=== PATIENT | female | born 1930 | race Caucasian/White ===

== ENCOUNTER 2016-12-10 09:02 | Inpatient (IN) | payer BC, OTHER ==
[2016-12-10] VITALS (7 sets, daily range): BP systolic 130–170; BP diastolic 71–89; PULSE 46–74; TEMP 36.3–36.7; O2SAT 95–99; Ht 165.1 cm; Wt 70.4 kg
[~2016-12-10] VITALS: Ht 165.1 cm; Wt 70.4 kg
[~2016-12-10 09:02] MED LIST: ASPCH81X PO; FERR325T51 PO; PRAV20TA PO
[2016-12-10] MEDS ORDERED: FENTANYL CITRATE INJ 50 MCG/1 ML 2 ML VIAL IV STA ×2 (09:17→10:55)
[2016-12-10] MEDS ORDERED: ONDANSETRON INJ 2 MG/ML 2 ML VIAL IV STA (09:17)
[2016-12-10] MEDS ORDERED: SODIUM CHLORIDE 0.9% 1000ML 1,000 ML IV STA (09:17)
[2016-12-10 09:56] LABS: BASO % 0.6 %; BASO ABS # 0.04 K/uL (0-0.2); COMPLETE YES; EOS % 2.6 %; HEMATOCRIT 41.8 % (37-47); IG% 0.3 %; LYMPH % 19.7 %; LYMPH ABS # 1.41 K/uL (1.2-3.4); MEAN CELL VOLUME 86.7 fL (80-100); MEAN CORPUSCULAR HEMOGLOBIN 29.3 pg (25-34); MEAN CORPUSCULAR HGB CONC 33.7 g/dl (32-36); MEAN PLATELET VOLUME 9.5 fL (7.4-10.4); MONO % 6.8 %; PLATELET COUNT 233 K/uL (130-400); RED BLOOD COUNT 4.82 M/uL (4.2-5.4); WHITE BLOOD COUNT 7.17 K/uL (4.8-10.8)
--- NOTE | 2016-12-10 10:09 | EMERGENCY ROOM VISIT NOTE ---
History Report prepared by Neville: Leslye Lim Under the Supervision of: Dr. Chel Duncan M.D. First contact with patient: 09:10 Chief Complaint: FLANK PAIN Stated Complaint: EXTREME PAIN ON LEFT SIDE POSSIBLY A KIDNEY STONE History of Present Illness The patient is an 86 year old female who presents to the Emergency Room with complaints of persistent left flank pain that started this morning. The patient rates her pain a 7-8/10 in severity. She reports that she has had 13 kidney stones in the past, but states that her last one was five years ago. The patient states that she was woken up from her sleep because of the pain. She notes that she fell backwards onto her cement driveway a week ago while she was gardening. The patient states that she did not lose consciousness and was helped up by her daughter who is a nurse. She notes that she has been having trouble urinating. The patient denies a headache or vomiting. She denies being on any anticoagulants. The patient denies any kidney function issues. Source of History: patient Onset: this morning Position: other (left flank) Symptom Intensity: 7-8/10 Timing: other (persistent) Associated Symptoms: + urinary symptoms (trouble urinating), No LOC, No headache, No vomiting Review of Systems See HPI for pertinent positives & negatives. A total of 10 systems reviewed and were otherwise negative. 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 Social History Smoking Status: Never Smoker Marital Status: Housing Status: lives with family Current/Historical Medications Scheduled Aspirin (Aspirin Chewable), 81 MG PO DAILY Allergies Coded Allergies: Celecoxib (Verified Allergy, Mild, ITCHING, 06/01/15) Physical Exam Vital Signs Date Time Temp Pulse Resp B/P (MAP) Pulse Ox O2 Delivery O2 Flow Rate FiO2 12/10/16 12:00 47 21 99 12/10/16 11:30 46 16 99 12/10/16 11:19 50 16 170/82 100 Room Air 12/10/16 10:40 49 21 168/76 99 Room Air 12/10/16 09:57 55 12/10/16 09:06 36.3 68 20 137/82 99 Room Air Physical Exam Vital signs reviewed. General: Well-appearing female, in no significant distress. HEENT: No scleral icterus, PERRLA, neck supple. Atraumatic. Cardiovascular: Regular rate and rhythm, no extra sounds. Pulmonary: Clear to auscultation bilaterally, normal work of breathing. Abdomen: Soft, mild left CVA tenderness, mild left lower abdomen pain, no rebound or guarding, nondistended, positive bowel sounds. Musculoskeletal: Atraumatic, no peripheral edema. Neurologic: Patient awake alert and oriented x 3 Skin: Warm, dry, no rash Medical Decision & Procedures ER Provider Diagnostic Interpretation: Radiology results as stated below per my review and radiologist interpretation: CT SCAN OF THE ABDOMEN AND PELVIS WITHOUT IV CONTRAST CLINICAL HISTORY: Left lower quadrant abdominal pain. COMPARISON STUDY: Abdominal CT dated 09/12/2013. TECHNIQUE: CT scan of the abdomen and pelvis is performed from the lung bases to the proximal femora. Images are reviewed in the axial, sagittal, and coronal planes. IV contrast was not administered for this examination as per the referring clinician. A dose lowering technique was utilized adhering to the principles of ALARA. CT DOSE: 918.77 mGy.cm FINDINGS: Lung bases: The heart is normal in size and there is trace pericardial fluid. Numerous punctate calcified granulomas are seen in the lung bases. No airspace consolidation or pleural effusion is identified. Liver: The unenhanced liver is normal in size, contour, and attenuation. There is no intrahepatic biliary ductal dilatation. Gallbladder: Unremarkable. Spleen: Normal in size and attenuation. Pancreas: The unenhanced pancreas is atrophic. Scattered parenchymal calcifications are noted. Adrenal glands: Unremarkable. Kidneys: The unenhanced kidneys are atrophic. There is an 11 mm obstructing calculus at the left vesicoureteral junction seen on axial image #349. This causes severe left-sided hydroureteronephrosis. There is associated left-sided perinephric anterior tear stranding as well as perinephric fluid. An additional 14 mm calculus is present in the left renal collecting system. No right renal calculi are identified. There is no right-sided hydronephrosis. There is no evidence of contour deforming renal mass lesion. 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 Abdominal vasculature: The abdominal aorta is normal in course and caliber noting mild atherosclerotic calcification. Stomach and bowel: There is a large hiatal hernia with over half of the stomach located in the thoracic cavity. The duodenum is normal in configuration. No bowel obstruction is seen. There is moderate sigmoid diverticulosis without CT evidence of acute diverticulitis. The appendix is not identified and reported surgically absent Peritoneum: There is no intraperitoneal free air or abdominal ascites. There is a small fat-containing umbilical hernia. Lymphadenopathy: None. Pelvic viscera: Evaluation of the pelvis is significantly degraded by streak artifact from bilateral hip arthroplasties. The bladder is grossly unremarkable but not well visualized due to streak artifact. Small calcified uterine fibroids are suggested. No adnexal lesion is seen. Findings suggest pelvic floor prolapse. Skeletal structures: The skeletal structures are osteopenic. Moderate lumbosacral spondylosis is observed. There are bilateral hip arthroplasties. No lytic or blastic lesions are seen. IMPRESSION: 1. There is an 11 mm obstructing calculus at the left vesicoureteral junction. This causes severe left-sided hydroureteronephrosis. 2. There is an additional 14 mm nonobstructing left renal calculus. No right renal calculi are identified. 3. 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 4. Large hiatal hernia. 5. Moderate sigmoid diverticulosis without CT evidence of acute diverticulitis. 5. Additional findings as above. Electronically signed by: Romeo Gregory M.D. 12/10/2016 10:30 AM Dictated Date/Time: 12/10/2016 10:23 AM Laboratory Results Test 12/10/16 09:40 Immature Granulocyte % (Auto) 0.3 % White Blood Count 7.17 K/uL (4.8-10.8) Red Blood Count 4.82 M/uL (4.2-5.4) Hemoglobin 14.1 g/dL (12.0-16.0) Hematocrit 41.8 % (37-47) Mean Corpuscular Volume 86.7 fL (80-100) Mean Corpuscular Hemoglobin 29.3 pg (25-34) Mean Corpuscular Hemoglobin Concent 33.7 g/dl (32-36) Platelet Count 233 K/uL (130-400) Mean Platelet Volume 9.5 fL (7.4-10.4) Neutrophils (%) (Auto) 70.0 % Lymphocytes (%) (Auto) 19.7 % Monocytes (%) (Auto) 6.8 % Eosinophils (%) (Auto) 2.6 % Basophils (%) (Auto) 0.6 % Neutrophils # (Auto) 5.02 K/uL (1.4-6.5) Lymphocytes # (Auto) 1.41 K/uL (1.2-3.4) Monocytes # (Auto) 0.49 K/uL (0.11-0.59) Eosinophils # (Auto) 0.19 K/uL (0-0.5) Basophils # (Auto) 0.04 K/uL (0-0.2) Immature Granulocyte # (Auto) 0.02 K/uL (0.00-0.02) Total Bilirubin 0.5 mg/dl (0.2-1) Direct Bilirubin 0.1 mg/dl (0-0.2) Aspartate Amino Transf (AST/SGOT) 21 U/L (15-37) Alanine Aminotransferase (ALT/SGPT) 13 U/L (12-78) Alkaline Phosphatase 106 U/L (45-117) Total Protein 6.7 gm/dl (6.4-8.2) Albumin 3.3 gm/dl (3.4-5.0) Laboratory results per my review. Medications Administered Medications (Trade) Dose Ordered Sig/Deepika Route Start Time Stop Time Status Last Admin Dose Admin Sodium Chloride 1,000 ml @ 125 mls/hr Q8H STAT IV 12/10/16 09:17 12/10/16 15:29 DC 12/10/16 09:17 125 MLS/HR Fentanyl Citrate (Fentanyl Inj) 25 mcg NOW STAT IV 12/10/16 09:17 12/10/16 09:20 DC 12/10/16 09:50 25 MCG Ondansetron HCl (Zofran Inj) 4 mg NOW STAT IV 12/10/16 09:17 12/10/16 09:20 DC 12/10/16 09:49 4 MG Fentanyl Citrate (Fentanyl Inj) 50 mcg NOW STAT IV 12/10/16 10:55 12/10/16 10:56 DC 12/10/16 11:05 50 MCG Potassium Chloride/Sodium Chloride 1,000 ml @ 125 mls/hr Q8H IV 12/10/16 12:00 01/09/17 11:59 12/11/16 04:11 125 MLS/HR ED Course 0915: Past medical records reviewed. The patient was evaluated in room B10. A complete history and physical examination was performed. 0917: Zofran Inj 4 mg IV, Fentanyl Citrate 25 mcg IV, Sodium Chloride 1000 ml @ 125 mls/hr IV. 1055: Ordered Fentanyl Inj 50 mcg IV. 1104: I discussed the patient's case with Dr. Mccall, Urology. He states that the patient should be evaluated under a hospitalist and he will consult on the patient. 1115: I discussed the patient's [place] [facility] [place] is going to evaluate the patient for further treatment. 1120: I reevaluated the patient and she is resting comfortably. I discussed the exam findings with her and I discussed the treatment plan. She verbalized complete understanding and agreement. She will be evaluated for further treatment. Medical Decision Differential diagnosis: Etiologies such as renal colic, appendicitis, diverticulitis, mesenteric ischemia, aortic pathology, infections, inflammatory bowel disease, PUD, biliary pathology, UTI, as well as others were entertained. This patient was evaluated and appeared to be in no significant distress. Patient was complaining of a left lower quadrant abdominal discomfort. She does have mild CVA tenderness. CT scan of the abdomen and pelvis was performed and reveals a 1.1 cm stone in the distal left ureter. There is significant left hydronephrosis and a 13 mm stone in the kidney that is nonobstructing. Patient's laboratory work is fairly unrevealing. The patient required additional IV fentanyl for pain management. She did receive IV hydration. At this time she does not appear to be septic however given her advanced elderly age and size of the stone, it is in her best interest to be admitted for further management. The patient's case was discussed with Dr. Rader of the hospitalist service as well as of urology. The patient has been are aware of the plan and agrees. Medication Reconcilliation Current Medication List: was personally reviewed by me Blood Pressure Screening Patient's blood pressure: Elevated blood pressure Blood pressure disposition: Elevated BP felt to be situational, Did not require urgent referral Consults Time Called: 1055 Consulting Physician: Dr. Mccall, Urology Returned Call: [phone] I discussed the patient's case with Dr. Mccall, Urology. He states that the patient should be evaluated under a hospitalist and he will consult on the patient. Additional Consults: Time Called: 1109 Consulted Physician: GEORGE Enriquez Returned Call: [phone] Additional Comments: I discussed the patient's case with GEORGE Enriquez. He is going to evaluate the patient for further treatment. Impression Primary Impression: Urinary tract obstruction by kidney stone Scribe Attestation The scribe's documentation has been prepared under my direction and personally reviewed by me in its entirety. I confirm that the note above accurately reflects all work, treatment, procedures, and medical decision making performed by me. Departure Information Dispostion Being Evaluated By Hospitalist Referrals No Doctor, Assigned (PCP)
[2016-12-10 10:20] LABS: BUN/CREATININE RATIO 17.2 (10-20); CALCIUM 8.9 mg/dl (8.5-10.1); CREATININE 1.1 mg/dl (0.60-1.20); POTASSIUM 3.8 mmol/L (3.5-5.1)
--- NOTE | 2016-12-10 10:32 | DIAGNOSTIC IMAGING REPORT ---
CT SCAN OF THE ABDOMEN AND PELVIS WITHOUT IV CONTRAST CLINICAL HISTORY: Left lower quadrant abdominal pain. COMPARISON STUDY: Abdominal CT dated 09/12/2013. TECHNIQUE: CT scan of the abdomen and pelvis is performed from the lung bases to the proximal femora. Images are reviewed in the axial, sagittal, and coronal planes. IV contrast was not administered for this examination as per the referring clinician. A dose lowering technique was utilized adhering to the principles of ALARA. CT DOSE: 918.77 mGy.cm FINDINGS: Lung bases: The heart is normal in size and there is trace pericardial fluid. Numerous punctate calcified granulomas are seen in the lung bases. No airspace consolidation or pleural effusion is identified. Liver: The unenhanced liver is normal in size, contour, and attenuation. There is no intrahepatic biliary ductal dilatation. Gallbladder: Unremarkable. Spleen: Normal in size and attenuation. Pancreas: The unenhanced pancreas is atrophic. Scattered parenchymal calcifications are noted. Adrenal glands: Unremarkable. Kidneys: The unenhanced kidneys are atrophic. There is an 11 mm obstructing calculus at the left vesicoureteral junction seen on axial image #349. This causes severe left-sided hydroureteronephrosis. There is associated left-sided perinephric anterior tear stranding as well as perinephric fluid. An additional 14 mm calculus is present in the left renal collecting system. No right renal calculi are identified. There is no right-sided hydronephrosis. There is no evidence of contour deforming renal mass lesion. 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 Abdominal vasculature: The abdominal aorta is normal in course and caliber noting mild atherosclerotic calcification. Stomach and bowel: There is a large hiatal hernia with over half of the stomach located in the thoracic cavity. The duodenum is normal in configuration. No bowel obstruction is seen. There is moderate sigmoid diverticulosis without CT evidence of acute diverticulitis. The appendix is not identified and reported surgically absent Peritoneum: There is no intraperitoneal free air or abdominal ascites. There is a small fat-containing umbilical hernia. Lymphadenopathy: None. Pelvic viscera: Evaluation of the pelvis is significantly degraded by streak artifact from bilateral hip arthroplasties. The bladder is grossly unremarkable but not well visualized due to streak artifact. Small calcified uterine fibroids are suggested. No adnexal lesion is seen. Findings suggest pelvic floor prolapse. Skeletal structures: The skeletal structures are osteopenic. Moderate lumbosacral spondylosis is observed. There are bilateral hip arthroplasties. No lytic or blastic lesions are seen. IMPRESSION: 1. There is an 11 mm obstructing calculus at the left vesicoureteral junction. This causes severe left-sided hydroureteronephrosis. 2. There is an additional 14 mm nonobstructing left renal calculus. No right renal calculi are identified. 3. 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 4. Large hiatal hernia. 5. Moderate sigmoid diverticulosis without CT evidence of acute diverticulitis. 5. Additional findings as above. Electronically signed by: Romeo Gregory M.D. 12/10/2016 10:30 AM Dictated Date/Time: 12/10/2016 10:23 AM
[2016-12-10] MEDS ORDERED: ACETAMINOPHEN 325 MG TAB PO PRN (12:00)
[2016-12-10] MEDS ORDERED: MoRPHine SULFATE 4 MG/ML 1 ML CARP\\VIAL IV PRN (12:00)
[2016-12-10] MEDS ORDERED: POLYETHYLENE (MIRALAX) 17 GM PACK PO PRN (12:00)
[2016-12-10] MEDS ORDERED: ALUMINUM/MAGNESIUM/SIMETH (MAALOX MAX) 30 ML UDC PO PRN (12:00)
[2016-12-10] MEDS ORDERED: MAGNESIUM HYDROXIDE SUSP 30 ML UDC PO PRN (12:00)
[2016-12-10] MEDS ORDERED: ONDANSETRON INJ 2 MG/ML 2 ML VIAL IV PRN ×2 (12:00→14:30)
--- NOTE | 2016-12-10 12:25 | History and Physical ---
History & Physical Date & Time of Service: Dec 10, 2016 at 12:06 Chief Complaint: Extreme Pain On Left Side Possibly A Kidney Stone Primary Care Physician: Marlene Velásquez M.D. History of Present Illness Source: patient, spouse, clinic records, hospital records This is an 86 y/o female with a history of 13 previous kidney stones, CAD, and HLD who presented to the ED on 12/10 with left flank pain. The patient woke up this morning with left groin pain that then radiated up to her left flank. She described her initial pain as an aching 8/10 pain. She also had accompanied nausea but denied any vomiting. She also complains of urinary retention and dysuria but denies curtis hematuria. Her pain is now better controlled and she currently rates it a 2/10. Her nausea has resolved. The patient denies fevers , chills, sweats, chest pain, palpitations, claudication, cough, wheezing, shortness of breath, vomiting, hematuria, paralysis, weakness, numbness and tingling. 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 Status: Chronic (2) ESOPHAGEAL REFLUX Status: Chronic (3) HIP JOINT REPLACEMENT STATUS Status: Resolved (4) Hyperlipidemia Status: Chronic (5) Hypertension Status: Chronic (6) Kidney stones Status: Resolved (7) Noncompliance with medications Status: Chronic Family History Kidney stones Social History Smoking Status: Never Smoker Smokeless Tobacco Use: No Alcohol Use: none Drug Use: none Marital Status: Housing status: lives with significant other Occupational Status: retired Immunizations History of Influenza Vaccine: No Influenza Vaccine Date: Mar 17, 2012 History of Tetanus Vaccine?: Unknown History of Pneumococcal: No Pneumococcal Date: Mar 17, 2012 History of Hepatitis B Vaccine: No Multi-Drug Resistant Organisms History of MDRO: No Allergies Coded Allergies: Celecoxib (Verified Allergy, Mild, ITCHING, 06/01/15) Home Medications Scheduled Aspirin (Aspirin Chewable), 81 MG PO DAILY Review of Systems Constitutional: No fever, No chills, No sweats Eyes: No worsening of vision, No eye pain, No diplopia ENT: No hearing loss, No sore throat, No trouble swallowing Respiratory: No cough, No wheezing, No shortness of breath Cardiovascular: No chest pain, No claudication, No palpitations Abdomen: + pain, + nausea, No vomiting Musculoskeletal: No joint pain, No muscle pain, No calf pain Genitourinary - Female: + dysuria, + urinary retention, No hematuria Neurologic: No paralysis, No weakness, No numbness/tingling Integumentary: No rash, No itch, No color change Physical Exam Vital Signs Date Time Temp Pulse Resp B/P (MAP) Pulse Ox O2 Delivery O2 Flow Rate FiO2 12/10/16 11:19 50 16 170/82 100 Room Air 12/10/16 10:40 49 21 168/76 99 Room Air 12/10/16 09:57 55 12/10/16 09:06 36.3 68 20 137/82 99 Room Air General appearance: Well-developed, well-nourished, no apparent distress Head: Normocephalic, atraumatic Eyes: Normal inspection, PERRL, EOMI ENT: Normal ENT inspection, hearing grossly normal, pharynx normal Neck: Supple, no JVD, trachea midline Respiratory/Chest: Lungs clear to auscultation, normal breath sounds, no respiratory distress Cardiovascular: +Bradycardic. Regular rhythm, no gallop, no murmur Abdomen/GI: +Left flank very TTP. Mild suprapubic tenderness. Normal bowel sounds, soft Extremities/Musculoskeletal: Normal inspection, no calf tenderness, no pedal edema Neurological/Psych: Alert, normal mood/affect, oriented x 3 Skin: Normal color, warm/dry, no rash Diagnostics Laboratory Results Results Past 24 Hours Test 12/10/16 09:40 Range/Units White Blood Count 7.17 4.8-10.8 K/uL Red Blood Count 4.82 4.2-5.4 M/uL Hemoglobin 14.1 12.0-16.0 g/dL Hematocrit 41.8 37-47 % Mean Corpuscular Volume 86.7 80-100 fL Mean Corpuscular Hemoglobin 29.3 25-34 pg Mean Corpuscular Hemoglobin Concent 33.7 32-36 g/dl Platelet Count 233 130-400 K/uL Mean Platelet Volume 9.5 7.4-10.4 fL Neutrophils (%) (Auto) 70.0 % Lymphocytes (%) (Auto) 19.7 % Monocytes (%) (Auto) 6.8 % Eosinophils (%) (Auto) 2.6 % Basophils (%) (Auto) 0.6 % Neutrophils # (Auto) 5.02 1.4-6.5 K/uL Lymphocytes # (Auto) 1.41 1.2-3.4 K/uL Monocytes # (Auto) 0.49 0.11-0.59 K/uL Eosinophils # (Auto) 0.19 0-0.5 K/uL Basophils # (Auto) 0.04 0-0.2 K/uL RDW Standard Deviation 40.5 36.4-46.3 fL RDW Coefficient of Variation 12.7 11.5-14.5 % Immature Granulocyte % (Auto) 0.3 % Immature Granulocyte # (Auto) 0.02 0.00-0.02 K/uL Sodium Level 142 136-145 mmol/L Potassium Level 3.8 3.5-5.1 mmol/L Chloride Level 111 98-107 mmol/L Carbon Dioxide Level 26 21-32 mmol/L Anion Gap 5.0 3-11 mmol/L Blood Urea Nitrogen 19 7-18 mg/dl Creatinine 1.10 0.60-1.20 mg/dl Est Creatinine Clear Calc Drug Dose 35.5 ml/min Estimated GFR () 52.3 Estimated GFR (Non- 45.1 BUN/Creatinine Ratio 17.2 10-20 Random Glucose 90 70-99 mg/dl Calcium Level 8.9 8.5-10.1 mg/dl Total Bilirubin 0.5 0.2-1 mg/dl Direct Bilirubin 0.1 0-0.2 mg/dl Aspartate Amino Transf (AST/SGOT) 21 15-37 U/L Alanine Aminotransferase (ALT/SGPT) 13 12-78 U/L Alkaline Phosphatase 106 45-117 U/L Total Protein 6.7 6.4-8.2 gm/dl Albumin 3.3 3.4-5.0 gm/dl Diagnostic Radiology Reviewed the following studies and agree with interpretation as follows: Patient Name: JEANNE MANN Unit Number: [id number] Dictated: 12/10/161022 Transcribed: 12/10/161022 EV Printed Date/Time: [~ rep prt dt]/[~ rep prt tm] [~ rep ct labl] - [~ rep ct ivnm] [facility] [place] [address] Dictated: 10/14/17 1023 Transcribed: 12/10/16 1023 EV Printed Date/Time: [~ rep prt dt]/[~ rep prt tm] [~ rep ct labl] - [~ rep ct ivnm] Patient: JEANNE MANN Address1: [address] [place] [address] Rec: [id number] Address2: Acct ID: [id number] [facility] Zip: [place] [address] Date: 1930 Sex: F Room/Bed: Ref Phy: Marlene Velásquez M.D. SC: AIDNA Att Phy: Report #: [id number] Pastora Phy: Marlene Velásquez M.D. Test: APSTONE Admit Phy: Band Teacher: GERMAN Interpreting Phy: Romeo Gregory M.D. Diagnosis: EXTREME PAIN ON LEFT SIDE POSSIBLY A KIDNEY STONE Ordering Phy: Chel Duncan M.D. Service Date: 12/10/16 Admit Date: 12/10/16 MNE: [id number] CONF: DICTATED BY: Romeo Gregroy M.D.]] CC: Chel Duncan M.D. Hays, Amy L., M.D. Endcc: [~ rep ct add3]] CT SCAN OF THE ABDOMEN AND PELVIS WITHOUT IV CONTRAST CLINICAL HISTORY: Left lower quadrant abdominal pain. COMPARISON STUDY: Abdominal CT dated 09/12/2013. TECHNIQUE: CT scan of the abdomen and pelvis is performed from the lung bases to the proximal femora. Images are reviewed in the axial, sagittal, and coronal planes. IV contrast was not administered for this examination as per the referring clinician. A dose lowering technique was utilized adhering to the principles of ALARA. CT DOSE: 918.77 mGy.cm FINDINGS: Lung bases: The heart is normal in size and there is trace pericardial fluid. Numerous punctate calcified granulomas are seen in the lung bases. No airspace consolidation or pleural effusion is identified. Liver: The unenhanced liver is normal in size, contour, and attenuation. There is no intrahepatic biliary ductal dilatation. Gallbladder: Unremarkable. Spleen: Normal in size and attenuation. Pancreas: The unenhanced pancreas is atrophic. Scattered parenchymal calcifications are noted. Adrenal glands: Unremarkable. Kidneys: The unenhanced kidneys are atrophic. There is an 11 mm obstructing calculus at the left vesicoureteral junction seen on axial image #349. This causes severe left-sided hydroureteronephrosis. There is associated left-sided perinephric anterior tear stranding as well as perinephric fluid. An additional 14 mm calculus is present in the left renal collecting system. No right renal calculi are identified. There is no right-sided hydronephrosis. There is no evidence of contour deforming renal mass lesion. 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 Abdominal vasculature: The abdominal aorta is normal in course and caliber noting mild atherosclerotic calcification. Stomach and bowel: There is a large hiatal hernia with over half of the stomach located in the thoracic cavity. The duodenum is normal in configuration. No bowel obstruction is seen. There is moderate sigmoid diverticulosis without CT evidence of acute diverticulitis. The appendix is not identified and reported surgically absent Peritoneum: There is no intraperitoneal free air or abdominal ascites. There is a small fat-containing umbilical hernia. Lymphadenopathy: None. Pelvic viscera: Evaluation of the pelvis is significantly degraded by streak artifact from bilateral hip arthroplasties. The bladder is grossly unremarkable but not well visualized due to streak artifact. Small calcified uterine fibroids are suggested. No adnexal lesion is seen. Findings suggest pelvic floor prolapse. Skeletal structures: The skeletal structures are osteopenic. Moderate lumbosacral spondylosis is observed. There are bilateral hip arthroplasties. No lytic or blastic lesions are seen. IMPRESSION: 1. There is an 11 mm obstructing calculus at the left vesicoureteral junction. This causes severe left-sided hydroureteronephrosis. 2. There is an additional 14 mm nonobstructing left renal calculus. No right renal calculi are identified. 3. 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 4. Large hiatal hernia. 5. Moderate sigmoid diverticulosis without CT evidence of acute diverticulitis. 5. Additional findings as above. Electronically signed by: Romeo Gregory M.D. 12/10/2016 10:30 AM Dictated Date/Time: 12/10/2016 10:23 AM The status of this report is Signed. Draft = Not yet reviewed or approved by Radiologist. Signed = Reviewed and approved by Radiologist. <AttendingPhy></AttendingPhy> <FamilyPhy>Marlene Velásquez M.D.</FamilyPhy> < PrimaryPhy>Marlene Velásquez M.D.</PrimaryPhy> <UnitNumber>[id number]</UnitNumber> < VisitNumber>[id number]</VisitNumber> <PatientName>JEANNE MANN</ PatientName> <DateOfBirth>1930</DateOfBirth> <Location>[facility]</Location> < ServiceDate>12/10/16</ServiceDate> <MNE>ESINDI</MNE> <OrderingPhy>Chel Duncan M.D.</OrderingPhy> <OrderingPhyMNE>f rep ord dr kirkland</OrderingPhyMNE> < DictatingPhyMNE>f rep dict dr kirkland</DictatingPhyMNE> <CCListMNE>f rep ct saminae</ CCListMNE> <AdmittingPhyMNE>f pt admit dr kirkland</AdmittingPhyMNE> <AttendingPhyMNE >f pt attend dr kirkland</AttendingPhyMNE> <ConsultingPhyMNE>f pt consult dr kirkland</ConsultingPhyMNE> <FamilyPhyMNE>f pt fam dr kirkland</FamilyPhyMNE> <OtherPhyMNE>f pt other dr kirkland</OtherPhyMNE> < PrimaryPhyMNE>f pt prim care dr kirkland</PrimaryPhyMNE> <ReferringPhyMNE>f pt referring dr kirkland</ReferringPhyMNE> Impression Assessment and Plan 86 y/o female with a history of 13 previous kidney stones, CAD, and HLD who presented to the ED on 12/10 with left flank pain. Pt arrived afebrile, VSS. CT abdomen and pelvis shows 11 mm left ureteral stone in UVJ with severe hydronephrosis, as well as a non-obstructing 14 mm stone in left kidney. 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 Labs grossly unremarkable. Left ureteral stone -Admit to med/surg -NSS + 20 mEq KCl at 125 cc/hr -Morphine 4 mg IV q4h prn pain -Zofran 4 mg IV q6h prn nausea -Flomax 0.4 mg PO hs -Consult urology, appreciate recs: spoke to Dr. Mccall who will see patient. Leave NPO for now -NPO for possible stent later today. Pt has not eaten at all today -Strain urine -UA pending CAD s/p stents -Hold ASA for possible procedure HTN--pt typically with controlled BP but elevated in ED -Cover with hydralazine 10 mg IV q6h prn SBP >180 DVT prophylaxis -Hold chemical prophylaxis for possible procedure -WIN cheema and SCDs Code Status -Level I, FULL RESUSCITATION STATUS Attending Addendum: I have physically seen and examined this patient, have directed the physician assistants medical activities, and agree with the H&P as noted above with the following exceptions as noted. The patient is awake, alert and oriented 3, well-developed and well-nourished , normocephalic and atraumatic, lying in bed and in no acute distress. HEENT--PERRL, EOMI, mucous membranes and oropharynx dry. Neck--supple, no JVD or bruits, thyroid normal, trachea midline, no adenopathy. Heart--normal S1 and S2, no extra beats, no murmurs, rubs or gallops. Lungs--clear bilaterally with good air movement, no respiratory distress, no accessory muscle use. Abdomen--normal bowel sounds and soft, nontender and nondistended, no hernias or masses, no organomegaly. Extremities--no cyanosis, clubbing or edema. There are good distal pulses b/l. Dermatologic--normal skin turgor, normal color, warm and dry, no abnormal lymph nodes, no rash. Neurologic--cranial nerves II through XII grossly intact, motor and sensory examination normal. Rheumatologic--normal range of motion, nontender, muscles and joints. Psychiatric--normal affect. Assessment and Plan: Left Vesicoureteral junction stone/left sided severe hydroureteronephrosis-- Admitted to the medical surgical floor. Nothing by mouth except his such medications IV fluids. Follow serial BMP and magnesium levels Morphine 4 mg IV every 4 hours when necessary severe pain Zofran 4 mg IV every 6 hours when necessary Flomax 0.4 mg by mouth at bedtime. Cipro 400 mg IV every 12 hours. Rao urine culture and sensitivity report Consult urology, Dr. Mccall is aware. CAD/hypertension-- Hold aspirin Hydralazine 10 mg IV every 6 hours. Systolic blood pressure is 180. Level of Care Med/Surg Advanced Directives Existing Advance Directive: No Existing Living Will: No Existing Power of Yarn Spooler: No Resuscitation Status FULL RESUSCITATION VTE Prophylaxis VTE Risk Assessment Done? Y/N: Yes Risk Level: Moderate Given or contraindicated: T.E.D. Stockings, SCD's
[2016-12-10] MEDS ORDERED: HydrALAZINE HCL 20 MG/ML VIAL IV. PRN (12:30)
[2016-12-10 13:11] LABS: URINE APPEARANCE CLEAR (CLEAR); URINE BILIRUBIN NEG (NEG); URINE COLOR YELLOW; URINE EPITHELIAL CELL AUTO >30 /lpf (0-5); URINE NITRITE NEG (NEG); URINE SPECIFIC GRAVITY 1.019 (1.000-1.030); UROBILINOGEN NEG (NEG); ZZUR CULT IF INDIC CLEAN CATCH NO
[2016-12-10 13:12] LABS: MANUAL MICROSCOPIC REQUIRED? NO; REVIEW REQ? NO
[2016-12-10] MEDS: NSS + 20MEQ KCL 1000ML 1,000 ML IV SCH ×2 (14:00→20:26)
[2016-12-10] MEDS ORDERED: MEPERIDINE HCL 25 MG/ML CARP IV PRN (14:30)
[2016-12-10] MEDS ORDERED: LABETALOL HCL IV 5 MG/ML 20ML IV PRN (14:30)
[2016-12-10] MEDS ORDERED: FENTANYL CITRATE INJ 50 MCG/1 ML 2 ML VIAL IV PRN (14:30)
[2016-12-10] MEDS ORDERED: ATROPINE SULFATE 0.1 MG/ML 5ML SYR IV PRN (14:30)
[2016-12-10] MEDS ORDERED: EpHEDrine SULFATE INJ 50 MG/ML AMP IV PRN (14:30)
[2016-12-10] MEDS ORDERED: HYDROmorphone INJ 1 MG/ML SYR IV PRN (14:30)
--- NOTE | 2016-12-10 15:24 | Urology Consultation ---
History General Date of Service: Dec 10, 2016. Primary Care Physician: Marlene Velásquez M.D. Pt seen a urologist before?: Yes If yes, why?: Stones History of Present Illness Patient is an 86-year-old white female who awoke this morning with left flank pain. She has a history of nephrolithiasis. Pain became severe so she came to the emergency room. CT scan showed a 13 mm stone in the left kidney and an 11 mm stone at the left ureterovesical junction with hydroureteronephrosis on that side She denies any fevers or chills. She did have some nausea. Currently the pain is controlled with narcotics Laboratory Last 24 Hours Test 12/10/16 09:40 12/10/16 12:50 White Blood Count 7.17 K/uL Red Blood Count 4.82 M/uL Hemoglobin 14.1 g/dL Hematocrit 41.8 % Mean Corpuscular Volume 86.7 fL Mean Corpuscular Hemoglobin 29.3 pg Mean Corpuscular Hemoglobin Concent 33.7 g/dl Platelet Count 233 K/uL Mean Platelet Volume 9.5 fL Neutrophils (%) (Auto) 70.0 % Lymphocytes (%) (Auto) 19.7 % Monocytes (%) (Auto) 6.8 % Eosinophils (%) (Auto) 2.6 % Basophils (%) (Auto) 0.6 % Neutrophils # (Auto) 5.02 K/uL Lymphocytes # (Auto) 1.41 K/uL Monocytes # (Auto) 0.49 K/uL Eosinophils # (Auto) 0.19 K/uL Basophils # (Auto) 0.04 K/uL RDW Standard Deviation 40.5 fL RDW Coefficient of Variation 12.7 % Immature Granulocyte % (Auto) 0.3 % Immature Granulocyte # (Auto) 0.02 K/uL Sodium Level 142 mmol/L Potassium Level 3.8 mmol/L Chloride Level 111 mmol/L Carbon Dioxide Level 26 mmol/L Anion Gap 5.0 mmol/L Blood Urea Nitrogen 19 mg/dl Creatinine 1.10 mg/dl Est Creatinine Clear Calc Drug Dose 35.5 ml/min Estimated GFR () 52.3 Estimated GFR (Non- 45.1 BUN/Creatinine Ratio 17.2 Random Glucose 90 mg/dl Calcium Level 8.9 mg/dl Total Bilirubin 0.5 mg/dl Direct Bilirubin 0.1 mg/dl Aspartate Amino Transf (AST/SGOT) 21 U/L Alanine Aminotransferase (ALT/SGPT) 13 U/L Alkaline Phosphatase 106 U/L Total Protein 6.7 gm/dl Albumin 3.3 gm/dl Urine Color YELLOW Urine Appearance CLEAR Urine pH 7.0 Urine Specific [place] 1.019 Urine Protein 1+ Urine Glucose (UA) NEG Urine Ketones NEG Urine Occult Blood 2+ Urine Nitrite NEG Urine Bilirubin NEG Urine Urobilinogen NEG Urine Leukocyte Esterase MODERATE Urine WBC (Auto) 5-10 /hpf Urine RBC (Auto) 10-30 /hpf Urine Hyaline Casts (Auto) 1-5 /lpf Urine Epithelial Cells (Auto) >30 /lpf Urine Bacteria (Auto) NEG Problem List Medical Problems: (1) Urinary tract obstruction by kidney stone Status: Acute Family History Kidney stones Social History Hx Tobacco Use In Past Year?: No Marital status: Housing status: lives with significant other Occupation status: retired Immunizations History of Influenza Vaccine: No Influenza Vaccine Date: Mar 17, 2012 History of Tetanus Vaccine?: Unknown History of Pneumococcal: No Pneumococcal Date: Mar 17, 2012 History of Hepatitis B Vaccine: No History of MDRO No Allergies Coded Allergies: Celecoxib (Verified Allergy, Mild, ITCHING, 06/01/15) Medications Home Medications: Home Meds and Scripts Medications Dose Route/Sig Max Daily Dose Days Date Category Aspirin Chewable (Aspirin) 81 Mg Chew 81 Mg PO DAILY 05/28/15 Reported Inpatient Medications: Current Inpatient Medications Medications (Trade) Dose Ordered Sig/Deepika Route Start Time Stop Time Status Last Admin Dose Admin Sodium Chloride 1,000 ml @ 125 mls/hr Q8H STAT IV 12/10/16 09:17 12/10/16 17:16 12/10/16 09:17 125 MLS/HR Acetaminophen (Tylenol Tab) 650 mg Q4H PRN PO 12/10/16 12:00 01/09/17 11:59 Al Hydrox/Mg Hydrox/Simethicone (Maalox Max Susp) 15 ml Q4H PRN PO 12/10/16 12:00 01/09/17 11:59 Magnesium Hydroxide (Milk Of Magnesia Susp) 30 ml Q6H PRN PO 12/10/16 12:00 01/09/17 11:59 Polyethylene (Miralax Powder Packet) 17 gm DAILY PRN PO 12/10/16 12:00 01/09/17 11:59 Ondansetron HCl (Zofran Inj) 4 mg Q6H PRN IV 12/10/16 12:00 01/09/17 11:59 Potassium Chloride/Sodium Chloride 1,000 ml @ 125 mls/hr Q8H IV 12/10/16 12:00 01/09/17 11:59 12/10/16 14:00 125 MLS/HR Tamsulosin HCl (Flomax Cap) 0.4 mg HS PO 12/10/16 21:00 01/09/17 20:59 Morphine Sulfate (MoRPHine SULFATE INJ) 4 mg Q4H PRN IV 12/10/16 12:00 12/24/16 11:59 Hydralazine HCl (HydrALAZINE INJ) 10 mg Q6H PRN IV. 12/10/16 12:30 01/09/17 12:29 Fentanyl Citrate (Fentanyl Inj) 50 mcg Q5M PRN IV 12/10/16 14:30 12/10/16 19:30 Hydromorphone HCl (Dilaudid Inj) 0.5 mg Q5M PRN IV 12/10/16 14:30 12/10/16 19:30 Meperidine HCl (Demerol Inj) 25 mg Q5M PRN IV 12/10/16 14:30 12/10/16 19:30 Ondansetron HCl (Zofran Inj) 4 mg ONE PRN IV 12/10/16 14:30 12/10/16 19:30 Labetalol HCl (Normodyne IV) 5 mg Q5M PRN IV 12/10/16 14:30 12/10/16 19:30 Ephedrine Sulfate (EpHEDrine SULFATE INJ) 5 mg Q5M PRN IV 12/10/16 14:30 12/10/16 19:30 Atropine Sulfate (Atropine Sulfate 0.1MG/Ml Inj) 0.5 mg Q1M PRN IV 12/10/16 14:30 12/10/16 19:30 Review of Systems Review of Systems Additional Comments: Review of systems were reviewed from the admitting history and physical Physical Exam Vital Signs: Vital Signs Past 12 Hours Date Time Temp Pulse Resp B/P (MAP) Pulse Ox O2 Delivery O2 Flow Rate FiO2 12/10/16 15:15 36.4 47 18 146/80 (102) 98 Room Air 12/10/16 13:10 36.3 74 18 144/71 99 Room Air 12/10/16 12:52 57 14 149/68 99 Room Air 12/10/16 12:30 60 19 149/68 95 12/10/16 12:00 47 21 99 12/10/16 11:30 46 16 99 12/10/16 11:19 50 16 170/82 100 Room Air 12/10/16 10:40 49 21 168/76 99 Room Air 12/10/16 09:57 55 12/10/16 09:06 36.3 68 20 137/82 99 Room Air Physical Exam: General Appearance: WD/WN, no apparent distress Eyes: bilateral eyes normal inspection ENT: hearing grossly normal Neck: supple Respiratory/Chest: lungs clear, normal breath sounds, no respiratory distress, no accessory muscle use Cardiovascular: regular rate, rhythm Gastrointestinal: Abdomen: normal abdomen Assessment & Plan Assessment & Plan Assessment Left ureteral stone. Stone is too large to pass I believe I recommend that she have a cystoscopy and stent placed his even though she is not having pain now I think she probably will have typical colicky type pain as the night progresses but also I would be afraid that if she got a fever or chills she could become septic The procedure was described to her including the risks and benefits per the consent. She has had stents before so she knows with the like I did explain to her that I will not take stone out I'm just going to pass a stent all of her questions were answered and she would like to proceed
[2016-12-10] MEDS ORDERED: CIPROFLOXACIN 400MG / D5W IV SCH (16:00)
[2016-12-10] MEDS ORDERED: CONRAY 30% 150ML BOTTLE ONE (18:24)
[2016-12-10] MEDS ORDERED: FENTANYL CITRATE INJ 50 MCG/1 ML 2 ML VIAL ONE (18:33)
[2016-12-10] MEDS ORDERED: LIDOCAINE HCL 2% 2 ML VIAL (20MG/ML) ONE (19:02)
[2016-12-10] MEDS ORDERED: PROPOFOL IV EMULSION 10 MG/ML 20 ML VIAL IV ONE (19:02)
[2016-12-10] MEDS ORDERED: OXYCODONE/ACETAMINOPHEN 5-325 TAB PO PRN (19:15)
--- NOTE | 2016-12-10 19:16 | [facility] Operative Report ---
Operative Report Operative Date Dec 10, 2016. Pre-Operative Diagnosis Left ureteral stone. Post-Operative Diagnosis SAME PREOP Procedure(s) Performed Cystoscopy, Left Ureteral Stent Placement Surgeon Dr. Mccall School Photograph Editor Surgeon(s) none Estimated Blood Loss 0mL Findings large left ureteral stone Specimens none, Per Surgeon Drains 6x26 left stent Anesthesia MAC Complication(s) None Disposition Indications Patient is an 86-year-old white female with a 11 mm left distal ureteral calculus being brought down for stent placement Description of Procedure Patient was brought to the operating suite. Placed supine on the operating table. After the induction of an adequate level of intravenous sedation and appropriate timeout patient was then placed in the dorsolithotomy position. Lower abdomen and genitalia were prepped with Hibiclens and draped in a sterile fashion. Using a 22 [place] cystoscope routine cystoscopic exam was performed there were no bladder tumors seen next a left retrograde was performed showing a distal ureteral stone and a stone in the left kidney. Next a 0.038 guidewire was passed under fluoroscopic guidance up the left ureter to position the renal pelvis confirmed by fluoroscopy. A 6 [place] by 26 cm stent was then passed over the guidewire under fluoroscopic guidance into position in the kidney confirmed by fluoroscopy the guidewire was removed and good curl at the bladder level. Patient's bladder was then drained cystoscopy sheath removed. All needle sponge and instrument counts were correct at the end of the case. The patient tolerated the procedure well and was taken back to her room in stable condition I attest to the content of the Intraoperative Record and any orders documented therein. Any exceptions are noted below.
--- NOTE | 2016-12-10 19:39 | Anesthesiology Progress Note ---
Anesthesia Post Op Note Date & Time Dec 10, 2016 at 19:38 Vital Signs Pain Intensity: 0.0 Vital Signs Past 12 Hours Date Time Temp Pulse Resp B/P (MAP) Pulse Ox O2 Delivery O2 Flow Rate FiO2 12/10/16 15:15 36.4 47 18 146/80 (102) 98 Room Air 12/10/16 13:10 36.3 74 18 144/71 99 Room Air 12/10/16 12:52 57 14 149/68 99 Room Air 12/10/16 12:30 60 19 149/68 95 12/10/16 12:00 47 21 99 12/10/16 11:30 46 16 99 12/10/16 11:19 50 16 170/82 100 Room Air 12/10/16 10:40 49 21 168/76 99 Room Air 12/10/16 09:57 55 12/10/16 09:06 36.3 68 20 137/82 99 Room Air Notes Mental Status: alert / awake / arousable, participated in evaluation Pt Amnestic to Procedure: Yes Nausea / Vomiting: adequately controlled Pain: adequately controlled Airway Patency, RR, SpO2: stable & adequate BP & HR: stable & adequate Hydration State: stable & adequate Anesthetic Complications: no major complications apparent
[2016-12-10] MEDS ORDERED: TAMSULOSIN HCL 0.4 MG CAP PO SCH (21:00)
--- NOTE | 2016-12-10 22:58 | DIAGNOSTIC IMAGING REPORT ---
INTRAOPERATIVE RADIOGRAPHS CLINICAL HISTORY: Left-sided retrograde ureterogram and stent placement. Fluoroscopy time: 62 seconds. FINDINGS: 3 spot fluoroscopic views of the left abdomen from a ureteral stent placement procedure are correlated with abdominal CT dated 12/10/2016. The initial image shows a dilated distal left ureter. A filling defect is seen at the vesicoureteral junction consistent with the patient's known obstructing calculus. There is left-sided hydronephrosis. The final image shows the proximal end of a left ureteral stent being deployed. IMPRESSION: Intraoperative images from a left ureteral stent placement procedure as above. See operative report for detailed findings. Electronically signed by: Romeo Gregory M.D. 12/10/2016 10:57 PM Dictated Date/Time: 12/10/2016 10:55 PM
[2016-12-11 03:04] VITALS: BP 137/66; PULSE 51; TEMP 36.7; O2SAT 98
[2016-12-11] MEDS: NSS + 20MEQ KCL 1000ML 1,000 ML IV SCH ×2 (04:11→11:51)
[2016-12-11] MEDS ORDERED: CIPROFLOXACIN 400MG / 200ML D5W IV ONE (06:00)
[2016-12-11 06:25] LABS: HEMATOCRIT 37.2 % (37-47); MEAN CELL VOLUME 88.4 fL (80-100); MEAN CORPUSCULAR HEMOGLOBIN 28.3 pg (25-34); MEAN PLATELET VOLUME 9.5 fL (7.4-10.4); PLATELET COUNT 193 K/uL (130-400); RED BLOOD COUNT 4.21 M/uL (4.2-5.4); WHITE BLOOD COUNT 4.88 K/uL (4.8-10.8)
[2016-12-11 06:53] LABS: BUN/CREATININE RATIO 17.7 (10-20); CALCIUM 7.9 mg/dl (8.5-10.1); CREATININE 1.1 mg/dl (0.60-1.20); POTASSIUM 4.3 mmol/L (3.5-5.1)
[2016-12-11 07:48] VITALS: BP 133/78; PULSE 54; TEMP 36.6; O2SAT 97
--- NOTE | 2016-12-11 10:17 | DIAGNOSTIC IMAGING REPORT ---
KUB HISTORY: Left-sided kidney stone COMPARISON: Abdomen and pelvis CT 12/10/2016. FINDINGS: The bowel gas pattern is unremarkable. There are no dilated loops of small bowel to suggest an obstruction. There is a left ureteral stent which appears to be in good position. There is a 1.5 cm stone within the left renal pelvis/lower pole the left kidney. There is also a 1.2 cm stone at the left ureterovesical junction. No pneumoperitoneum or pneumatosis. IMPRESSION: 1. The left ureteral stent appears in good position. 2. No change in the left renal and left UVJ stones as described above. Electronically signed by: Rashi Rae M.D. 12/11/2016 10:16 AM Dictated Date/Time: 12/11/2016 10:14 AM
--- NOTE | 2016-12-11 12:32 | Progress Note ---
Progress Note Date of Service Dec 11, 2016. Progress Note Postop day #1 cystoscopy left stent placement Patient is afebrile vital signs are stable. She offers no complaints She is having some hematuria from the stent as expected in some discomfort but she said it is not severe She is voiding without problem I reviewed her KUB both stones are visible so would be amenable to ESWL Patient is stable for discharge from a urologic perspective She should get an appointment in our office this week.
[2016-12-11] MEDS ORDERED: PHENAZOPYRIDINE HCL 100 MG TAB PO ONE (14:00)
[2016-12-11] MEDS ORDERED: OXYBUTYNIN CHLORIDE 5 MG TAB PO ONE (14:00)
[2016-12-11 14:14] LABS: CKMB/CK RATIO 2.6 (0-3.0)
[2016-12-11] MEDS ORDERED: PHEN-939 PO (14:52)
[2016-12-11] MEDS ORDERED: HYDR-5688 PO (14:52)
[2016-12-11] MEDS ORDERED: OXYB5TAB74 PO (14:52)
--- NOTE | 2016-12-11 15:06 | Discharge Instructions ---
Discharge Instructions Date of Service Dec 11, 2016. Admission Reason for Admission: Left Ureteral Stone Discharge Discharge Diagnosis / Problem: left-sided kidney stone with placement of stent Discharge Goals Goal(s): Learn about illness, Diagnostic testing, Therapeutic intervention Activity Recommendations Activity Limitations: as noted below Until the stent is removed and the stone has been treated please "take it easy" - * no heavy exertional activity (going to the gym, etc) * no heavy lifting over 15 pounds * light walks are fine . Instructions / Follow-Up Instructions / Follow-Up From Dr. Carlson: 1. Kidney stone - * Dr. Mccall's office will call you with an appointment date/time for the stent and stone removal * if you do not hear from them within 48 hours please call their office 2. Pain control - may use any of the following: * norco (hydrocodone/tylenol) - 1 tablet every 6 hours as needed for pain * do not take extra tylenol while on the pain pills * do not drive or drink alcohol if taking pain pills * know that the pain pills will make you constipated * pyridium 100mg every 8 hours as needed for burning with urination/pain * the pyridium will turn your urine & tears orange color; this is a normal side effect * oxybutinin - 1/2 tab to 1 tab every 12 hours as needed for bladder pain 3. STOP YOUR ASPIRIN. YOU WILL BE ABLE TO RESUME THIS ONCE THE STENT AND STONE HAVE BEEN REMOVED. 4. DO NOT take any jeil-yni-cowryxe anti-inflammatory pills such as motrin, ibuprofen, naprosyn, alleve, etc. 5. Your blood work for your heart was NORMAL. Your EKG was acceptable. The cause of your pain you had in your chest last evening is uncertain. You have a large hiatal hernia on your CAT scan and this causes heartburn in most people. The pain could have been atypical heartburn. However, the pain could have been your heart as well. 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 6. Follow-up appointments - * see Urology within 1 week * see Dr. Velásquez within 1-2 weeks 7. Hydration - * good hydration helps prevent stone formation * avoid excessive amounts of caffeinated beverages including coffee, tea (cold and hot), soda (dark sodas) * maintain good hydration with water or lemonade on a day to day basis Current Hospital Diet Patient's current hospital diet: Regular Diet Discharge Diet Recommended Diet: AHA Diet (Heart Healthy) Procedures Procedures Performed: 1. Cystoscopy, Left Ureteral Stent Placement 2. CAT scan of the abdomen & pelvis showing 11mm kidney stone on the left causing blockage of urine flow. Incidental note of a second stone (14mm) that was not causing problems. Pending Studies Studies pending at discharge: yes List of pending studies: urine culture Medical Emergencies . Who to Call and When: Medical Emergencies: If at any time you feel your situation is an emergency, please call 911 immediately. . Non-Emergent Contact Non-Emergency issues call your: Urologist Call Non-Emergent contact if: temperature is above 100.5, your pain is not controlled, your pain is worsening, your pain is unusual for you, your pain is concerning you, you have any medication questions 1. The blood in the urine worsens (you are seeing it more frequently, you are seeing clots of blood, etc). 2. You are unable to void. 3. Your burning with urination/pain worsens despite the medications prescribed to you. 4. You develop abdominal pain, nausea, vomiting. . . "Provider Documentation" section prepared by Cornelio Carlson. . VTE Core Measure Inpt VTE Proph given/why not?: Radha Flores, SCD's
[2016-12-11 15:30] VITALS: BP 133/78; PULSE 54; TEMP 36.6; O2SAT 97
--- NOTE | 2016-12-12 10:47 | Discharge Summary ---
Discharge Summary Date of Service Dec 12, 2016. Discharge Summary Admission Date: Dec 10, 2016 at 12:05 Discharge Date: Dec 11, 2016 Discharge Disposition: Home Principal Diagnosis: left-sided kidney stone s/p stent placement Problems/Secondary Diagnoses: 1. CAD 2. episode of chest pain while hospitalized - negative cardiac work-up 3. hiatal hernia 4. multiple episodes of kidney stones in the past 5. hyperlipidemia Immunizations: Have You Had Influenza Vaccine: No Influenza Vaccine Date: Mar 17, 2012 History of Tetanus Vaccine?: Unknown History of Pneumococcal: No Pneumococcal Date: Mar 17, 2012 History of Hepatitis B Vaccine: No Procedures: 1. CT abd/pelvis: IMPRESSION: 1. There is an 11 mm obstructing calculus at the left vesicoureteral junction. This causes severe left-sided hydroureteronephrosis. 2. There is an additional 14 mm nonobstructing left renal calculus. No right renal calculi are identified. 3. 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 4. Large hiatal hernia. 5. Moderate sigmoid diverticulosis without CT evidence of acute diverticulitis. 2. Cystoscopy, Left Ureteral Stent Placement - Sumit Mccall MD Consultations: urology - Sumit Mccall MD Medication Reconciliation New Medications: Hydrocodone/Acetaminophen 5MG/325MG ([place] 5MG/325MG) Tab 1 TABLET PO Q6H PRN for Pain, #15 TAB 0 Refills Oxybutynin Chloride (Ditropan) 5 Mg Tab 0.5-1 TAB PO BID PRN for bladder pain, #30 TAB 0 Refills Phenazopyridine Hcl (Pyridium) 100 Mg Tab 100 MG PO Q8H PRN for urinary pain/burning, #15 TAB 0 Refills Discontinued Medications: Aspirin (Aspirin Chewable) 81 Mg Chew 81 MG PO DAILY Referrals At Discharge Follow up Referrals: Urologist Referral - Within 1 Week with Sumit Mccall MD Discharge Exam Physical Exam: General Appearance: no apparent distress ENT: pharynx normal Neck: no JVD Respiratory/Chest: lungs clear, no respiratory distress, no accessory muscle use Cardiovascular: no gallop, no murmur, normal peripheral pulses, + bradycardia Abdomen / GI: normal bowel sounds, non tender, soft, no organomegaly Extremities: no pedal edema Neurologic/Psychiatric: alert, oriented x 3 Hospital Course HISTORY OF PRESENT ILLNESS: This is an 86 y/o female with a history of 13 previous kidney stones, CAD, and hyperlipidemia who presented to the ED on 12/10/16 with left flank pain. The patient woke up this morning with left groin pain that then radiated up to her left flank. She described her initial pain as an aching 8/10 pain. She also had accompanied nausea but denied any vomiting. She also complains of urinary retention and dysuria but denies curtis hematuria. Her pain is now better controlled and she currently rates it a 2/10. Her nausea has resolved. The patient denies fevers, chills, sweats, chest pain, palpitations, claudication, cough, wheezing, shortness of breath, vomiting, hematuria, paralysis, weakness, numbness and tingling. HOSPITAL COURSE: At time of admission a CT of the abdomen/pelvis was obtained demonstrating an obstructing left-sided 11mm kidney stone. She was seen in consult by Dr. Sumit Mccall of urology and on hospital day # 1 she underwent cystoscopy with ureteral stent placement without complication. Post-op she did well with normal labs, vital signs, and stable physical exam. On day of discharge she admitted to an episode of left-sided chest pain that had occurred the night prior lasting about 15 minutes. Cardiac enzymes were checked on day of discharge and were normal. EKG was within normal limits. She was advised to follow-up with her PCP and/or nurse special if symptoms recurred. It is possible the symptoms were GI in origin given her large hiatal hernia and propensity for reflux. At discharge the following were recommended - 1. follow-up with urology within 1 week for stone & stent management 2. discontinuation of aspirin and all NSAIDs until #1 is complete 3. use of pyridium, norco, and oxybutinin prn for symptom control Of note - urine culture was sent prior to discharge and was pending at the time of this discharge summary. Total Time Spent: Greater than 30 minutes This includes examination of the patient, discharge planning, medication reconciliation, and communication with other providers. Discharge Instructions Please refer to the electronic Patient Visit Report (Discharge Instructions) for additional information. Follow-Up 1. see Dr. Mccall, urology, within [address] Marlene Velásquez, PCP, within 1 week Additional Copies To Marlene Velásquez M.D.; Sumit Mccall MD
== END 2016-12-11 16:09 | disposition home or self-care (01) | DRG 694 ==
LOC: C.EDB 09:03 → C.MSW 12:05 → ENRESERV 12:17
PROVIDERS: ADMIT Hospitalist; ATTEND Internal Medicine
PROC: BT14ZZZ Fluoroscopy of Kidneys, Ureters and Bladder (ICD-10-PCS; principal; 2016-12-10 13:08)
PROC: 0T778DZ Dilation of Left Ureter with Intraluminal Device, Via Natural or Artificial Opening Endoscopic (ICD-10-PCS; principal; 2016-12-10 13:08)
DX: N13.2 Hydronephrosis with renal and ureteral calculous obstruction (principal); R07.9 Chest pain, unspecified; K44.9 Diaphragmatic hernia without obstruction or gangrene; I25.10 Atherosclerotic heart disease of native coronary artery without angina pectoris; I11.9 Hypertensive heart disease without heart failure; Z79.82 Long term (current) use of aspirin; Z87.442 Personal history of urinary calculi; Z84.1 Family history of disorders of kidney and ureter

== ENCOUNTER → 2016-12-21 | Outpatient (CLI) | payer BC, OTHER ==
[~2016-12-21] MED LIST changes: -ASPCH81X PO; -FERR325T51 PO; +HYDR-5688 PO; +OXYB5TAB74 PO; +OXYC-57 PO; +PHEN-876 PO; +PHEN-939 PO; -PRAV20TA PO
--- NOTE | 2016-12-21 17:27 | DIAGNOSTIC IMAGING REPORT ---
CHEST 2 VIEWS ROUTINE HISTORY: N20.0 Calculus of kidney COMPARISON: Chest 12/30/2014. FINDINGS: Large hiatus hernia. The lungs are clear. The heart is normal in size. No pleural effusions. No pneumothorax. IMPRESSION: No acute process. Large hiatus hernia. Electronically signed by: Rashi Rae M.D. 12/21/2016 5:26 PM Dictated Date/Time: 12/21/2016 5:25 PM
== END | disposition home or self-care (01) ==
LOC: C.RAD 14:55
PROVIDERS: ATTEND Urology
DX: N20.0 Calculus of kidney (principal); K44.9 Diaphragmatic hernia without obstruction or gangrene

== ENCOUNTER 2016-12-29 03:30 | Inpatient (IN) | payer BC, OTHER ==
[~2016-12-29] VITALS: Ht 167.6 cm; Wt 70.5 kg
[2016-12-29] VITALS (8 sets, daily range): BP systolic 109–165; BP diastolic 63–75; PULSE 52–66; TEMP 36.6–37.1; O2SAT 96–98; Ht 167.6 cm; Wt 70.5 kg
[~2016-12-29 03:30] MED LIST changes: +DTR/5 PO; -HYDR-5688 PO; -OXYB5TAB74 PO; -PHEN-939 PO
[2016-12-29] MEDS ORDERED: ONDANSETRON INJ 2 MG/ML 2 ML VIAL IV STA (03:49)
--- NOTE | 2016-12-29 03:52 | EMERGENCY ROOM VISIT NOTE ---
History Report prepared by Neville: Linh Dick Under the Supervision of: Dr. Geo Myers M.D. First contact with patient: 03:43 Chief Complaint: KIDNEY STONE Stated Complaint: KIDNEY PAIN- SURGERY LAST WEEK, STENT OUT T-1 History of Present Illness The patient is a 86 year old female who presents to the Emergency Room with complaints of a kidney stone. She states that her pain began at 0100 this morning. The patient reports having nausea, but denies vomiting. She states that it reyes when she urinates and that there has been blood in her urine. The patient states that her stent was removed yesterday from her surgery. The patient reports that this is about her 15th kidney stone, but that she has not had one in about 5 years. Source of History: patient Onset: 0100 this morning Position: other (kidney) Quality: other (stone) Associated Symptoms: + nausea, + urinary symptoms (burning with urination, blood in urine ), No vomiting Review of Systems See HPI for pertinent positives & negatives. A total of 10 systems reviewed and were otherwise negative. Past Medical & Surgical Medical Problems: (1) CORONARY ATHEROSCLEROSIS OF [place] CORONARY VESSEL (2) ESOPHAGEAL REFLUX (3) esophageal stricture (4) HIP JOINT REPLACEMENT STATUS (5) Hyperlipidemia (6) Hypertension (7) Kidney stones (8) Left ureteral stone (9) Noncompliance with medications Family History Kidney stones Social History Smoking Status: Never Smoker Drug Use: none Marital Status: Housing Status: lives with significant other Occupation Status: retired Current/Historical Medications Scheduled PRN Oxybutynin Chloride (Ditropan), 5 MG PO BID PRN for PRN Oxycodone/Acetaminophen 5MG/325MG (Percocet 5MG/325MG), 1 TABLET PO Q4H PRN for Pain Phenazopyridine HCl (Pyridium), 200 MG PO TID PRN for PRN Allergies Coded Allergies: Celecoxib (Verified Allergy, Mild, ITCHING, 12/23/16) Physical Exam Vital Signs Date Time Temp Pulse Resp B/P (MAP) Pulse Ox O2 Delivery O2 Flow Rate FiO2 12/29/16 05:13 73 20 148/71 98 Room Air 12/29/16 03:33 36.9 85 20 171/75 97 Room Air Physical Exam GENERAL: Patient is uncomfortable appearing and in moderate distress. HEENT: No acute trauma, normocephalic atraumatic, mucous membranes moist, no nasal congestion, no scleral icterus. NECK: No stridor, no adenopathy, no meningismus, trachea is midline. LUNGS: No dyspnea. Clear to auscultation and equal bilaterally. No wheeze, no rhonchi. HEART: Regular rate and rhythm. No murmurs, rubs, gallops appreciated. ABDOMEN: Soft, nontender, bowel sounds positive, no masses appreciated, no peritonitis. BACK: No midline tenderness, no CVA tenderness EXTREMITIES: Normal motion all extremities, no cyanosis, no edema.Vague left CVA tenderness to palpation. NEUROLOGIC: Alert and oriented, no acute motor or sensory deficits, no focal weakness, cranial nerves grossly intact. SKIN: No rash, no jaundice, no diaphoresis. Medical Decision & Procedures ER Provider Diagnostic Interpretation: Radiology results and stated below per my review and [facility]. CT ABDOMEN & PELVIS With Contrast: Comparison CT abdomen and pelvis 12/10/16. 1.4 x 0.6 cm stone at distal left ureter with severe left hydroureteronephrosis , perinephric and periureteral stranding and also urethral wall hyperenhancement. This stone was located within the left renal pelvis on prior CT. Bilateral total hip arthroplasties and resulting streak artifact limits evaluation of the pelvic. Colonic diverticulosis without evidence of acute diverticulitis. Right renal atrophy and likely small cysts. Right renal artery aneurysm again noted likely thrombosed. No right hydronephrosis. Large sliding hiatal hernia. Small fat filled umbilical hernia. Multilevel degenerative of the lumbar spine. Laboratory Results 12/29/16 04:00 Red Blood Count 4.70, Mean Corpuscular Volume 87.2, Mean Corpuscular Hemoglobin 28.5, Mean Corpuscular Hemoglobin Concent 32.7, Mean Platelet Volume 9.2, Neutrophils (%) (Auto) 75.8, Lymphocytes (%) (Auto) 12.6, Monocytes (%) (Auto) 9.1, Eosinophils (%) (Auto) 1.8, Basophils (%) (Auto) 0.5, Neutrophils # (Auto) 6.65, Lymphocytes # (Auto) 1.11, Monocytes # (Auto) 0.80, Eosinophils # (Auto) 0.16, Basophils # (Auto) 0.04 12/29/16 04:00 Test 12/29/16 04:00 12/29/16 04:05 12/29/16 04:11 White Blood Count 8.78 K/uL (4.8-10.8) Red Blood Count 4.70 M/uL (4.2-5.4) Hemoglobin 13.4 g/dL (12.0-16.0) Hematocrit 41.0 % (37-47) Mean Corpuscular Volume 87.2 fL (80-100) Mean Corpuscular Hemoglobin 28.5 pg (25-34) Mean Corpuscular Hemoglobin Concent 32.7 g/dl (32-36) Platelet Count 331 K/uL (130-400) Mean Platelet Volume 9.2 fL (7.4-10.4) Neutrophils (%) (Auto) 75.8 % Lymphocytes (%) (Auto) 12.6 % Monocytes (%) (Auto) 9.1 % Eosinophils (%) (Auto) 1.8 % Basophils (%) (Auto) 0.5 % Neutrophils # (Auto) 6.65 K/uL (1.4-6.5) Lymphocytes # (Auto) 1.11 K/uL (1.2-3.4) Monocytes # (Auto) 0.80 K/uL (0.11-0.59) Eosinophils # (Auto) 0.16 K/uL (0-0.5) Basophils # (Auto) 0.04 K/uL (0-0.2) RDW Standard Deviation 40.0 fL (36.4-46.3) RDW Coefficient of Variation 12.5 % (11.5-14.5) Immature Granulocyte % (Auto) 0.2 % Immature Granulocyte # (Auto) 0.02 K/uL (0.00-0.02) Est Creatinine Clear Calc Drug Dose 30.6 ml/min Estimated GFR () 46.6 Estimated GFR (Non- 40.2 BUN/Creatinine Ratio 14.0 (10-20) Calcium Level 8.6 mg/dl (8.5-10.1) Total Bilirubin 0.3 mg/dl (0.2-1) Direct Bilirubin < 0.1 mg/dl (0-0.2) Aspartate Amino Transf (AST/SGOT) 20 U/L (15-37) Alanine Aminotransferase (ALT/SGPT) 16 U/L (12-78) Alkaline Phosphatase 106 U/L (45-117) Total Protein 6.8 gm/dl (6.4-8.2) Albumin 3.2 gm/dl (3.4-5.0) Lipase 267 U/L (73-393) Urine Color ORANGE Urine Appearance SLIGHTLY CLOUDY (CLEAR) Urine pH (4.5-7.5) Urine Specific [place] 1.021 (1.000-1.030) Urine Protein POS (NEG) Urine Glucose (UA) (NEG) Urine Ketones (NEG) Urine Occult Blood (NEG) Urine Nitrite (NEG) Urine Bilirubin (NEG) Urine Urobilinogen (NEG) Urine Leukocyte Esterase (NEG) Urine RBC >30 /hpf (0-4) Urine WBC 10-30 /hpf (0-5) Urine Epithelial Cells >30 /lpf (0-5) Urine Calcium Oxalate Crystals PRESENT (NONE PRSENT) Urine Bacteria NEG (NEG) Urine Hyaline Casts 5-10 /lpf (0-5) Urine Mucus PRESENT (NONE PRSENT) Bedside Hemoglobin 13.6 g/dl (12.0-16.0) Bedside Hematocrit 40 % (37-47) Bedside Sodium 141 mEq/L (135-144) Bedside Potassium 3.9 mEq/L (3.3-5.0) Bedside Chloride 108 mEq/L (101-112) Bedside Total CO2 20 mEq/l (24-31) Anion Gap 17.0 mmol/L (16-25) Bedside Blood Urea Nitrogen 17 mg/dl (7-18) Bedside Creatinine 1.2 mg/dl (0.6-1.3) Bedside Glucose (other) 106 mg/dl (70-99) Bedside Ionized Calcium (Ronald) 1.13 mmol/l (1.12-1.32) Laboratory results as reviewed by me. Medications Administered Medications (Trade) Dose Ordered Sig/Deepika Route Start Time Stop Time Status Last Admin Dose Admin Fentanyl Citrate (Fentanyl Inj) 50 mcg NOW ONCE IV 12/29/16 04:00 12/29/16 04:01 DC 12/29/16 04:05 50 MCG Ondansetron HCl (Zofran Inj) 4 mg NOW STAT IV 12/29/16 03:49 12/29/16 03:51 DC 12/29/16 04:04 4 MG Hydromorphone HCl (Dilaudid Inj) 0.5 mg NOW STAT IV 12/29/16 04:59 12/29/16 05:00 DC 12/29/16 05:05 0.5 MG Hydromorphone HCl (Dilaudid Inj) 0.5 mg NOW STAT IV 12/29/16 05:47 12/29/16 05:48 DC 12/29/16 05:53 0.5 MG ED Course 0345: The patient was evaluated in room B9. A complete history and physical exam was performed. 0349: Ordered Zofran Inj 4 mg IV. 0400: Ordered Fentanyl Inj 50 mcg IV. 0435: I checked on the patient and she reports feeling better. 0459: Ordered Dilaudid Inj 0.5 mg IV. 0547: Ordered Dilaudid Inj 0.5 mg IV. 0550: Discussed the patient's case with Dr. Redmond. The patient will be evaluated for further treatment and disposition. 0555: Upon reevaluation, the patient is resting. Discussed results and treatment plan with the patient. She verbalized understanding and agreement with the treatment plan. The patient will be evaluated for further management. 0557: The patient notes that her pain is coming back. 0600: Ordered Dilaudid Inj 0.5 mg IV. Medical Decision Differential: Renal Colic, Pyelonephritis, Hydronephrosis, Appendicitis, Diverticulitis, Retroperitoneal Bleed/Infection, Aortic Pathology, MSK, Neurologic Pathology, amongst other pathologies entertained. 86 yr old female arrives with acute left flank pain. She had stent placed 2 weeks ago for distal ureteral stone and it was removed yesterday. Quite uncomfortable her and found to have on repeat CT a 1.4 cm distal ureteral stone that I suspect was one that has been in kidney a few weeks ago. Likely passed the one that stent was originally placed. Intractable pain with a stone that is very unlikely to pass on its own thus will bring in for further work-up and evaluation. No evidence that this stone is infected at this time. Stable with baseline labs. Medication Reconcilliation Current Medication List: was personally reviewed by nd Blood Pressure Screening Patient's blood pressure: Elevated blood pressure will be monitored by hospitalist Consults Time Called: 0520 Consulting Physician: Dr. Redmond- [place] Returned Call: 0550 Discussed the patient's case. The patient will be evaluated for further treatment and disposition. Impression Primary Impression: Left ureteral stone Additional Impressions: Hydronephrosis, left Intractable pain Scribe Attestation The scribe's documentation has been prepared under my direction and personally reviewed by me in its entirety. I confirm that the note above accurately reflects all work, treatment, procedures, and medical decision making performed by me. Departure Information Dispostion Being Evaluated By Hospitalist Referrals Marlene Velásquez M.D. (PCP) Patient Instructions My [facility] Problem Qualifiers
[2016-12-29] MEDS ORDERED: OPTIRAY 320 IV PRN (04:00)
[2016-12-29] MEDS ORDERED: FENTANYL CITRATE INJ 50 MCG/1 ML 2 ML VIAL IV ONE (04:00)
[2016-12-29 04:24] LABS: ISTAT CREATININE 1.2 mg/dl (0.6-1.3); ISTAT HEMOGLOBIN 13.6 g/dl (12.0-16.0); ISTAT IONIZED CALCIUM 1.13 mmol/l (1.12-1.32)
[2016-12-29 04:25] LABS: BASO % 0.5 %; BASO ABS # 0.04 K/uL (0-0.2); COMPLETE YES; EOS % 1.8 %; IG% 0.2 %; LYMPH % 12.6 %; LYMPH ABS # 1.11 K/uL (1.2-3.4); MEAN CELL VOLUME 87.2 fL (80-100); MEAN CORPUSCULAR HEMOGLOBIN 28.5 pg (25-34); MEAN CORPUSCULAR HGB CONC 32.7 g/dl (32-36); MEAN PLATELET VOLUME 9.2 fL (7.4-10.4); MONO % 9.1 %; NEUT % 75.8 %; PLATELET COUNT 331 K/uL (130-400); WHITE BLOOD COUNT 8.78 K/uL (4.8-10.8)
[2016-12-29 04:37] LABS: MANUAL MICROSCOPIC REQUIRED? YES; REVIEW REQ? NO; SULFASALICYLIC ACID POS (NEG); URINE APPEARANCE SLIGHTLY CLOUDY (CLEAR); URINE COLOR ORANGE; URINE SPECIFIC GRAVITY 1.021 (1.000-1.030)
[2016-12-29 04:39] LABS: URINE RBC >30 /hpf (0-4)
[2016-12-29 04:40] LABS: URINE BACTERIA NEG (NEG); URINE MUCUS PRESENT (NONE PRSENT); ZZUR CULT IF INDIC CLEAN CATCH YES
[2016-12-29 04:43] LABS: ALT/SGPT 16 U/L (12-78); AST/SGOT 20 U/L (15-37); BLOOD UREA NITROGEN 17 mg/dl (7-18); CALCIUM 8.6 mg/dl (8.5-10.1); CARBON DIOXIDE 21 mmol/L (21-32); CHLORIDE 111 mmol/L (98-107); CREATININE 1.21 mg/dl (0.60-1.20); GLUCOSE 108 mg/dl (70-99); POTASSIUM 3.9 mmol/L (3.5-5.1); SODIUM 141 mmol/L (136-145)
[2016-12-29 04:45] LABS: ALKALINE PHOSPHATASE 106 U/L (45-117)
[2016-12-29] MEDS ORDERED: HYDROmorphone INJ 0.5 MG/0.5 ML SYR IV STA ×2 (04:59→05:47)
[2016-12-29] MEDS ORDERED: ONDANSETRON INJ 2 MG/ML 2 ML VIAL IV PRN (06:00)
[2016-12-29] MEDS ORDERED: ACETAMINOPHEN 325 MG TAB PO PRN (06:00)
[2016-12-29] MEDS ORDERED: ALUMINUM/MAGNESIUM/SIMETH (MAALOX MAX) 30 ML UDC PO PRN (06:00)
[2016-12-29] MEDS ORDERED: OXYBUTYNIN CHLORIDE 5 MG TAB PO PRN (06:00)
[2016-12-29] MEDS ORDERED: HYDROmorphone INJ 0.5 MG/0.5 ML SYR IV PRN (06:00)
[2016-12-29] MEDS ORDERED: PHENAZOPYRIDINE HCL 200 MG TAB PO PRN (06:00)
[2016-12-29] MEDS ORDERED: MAGNESIUM HYDROXIDE SUSP 30 ML UDC PO PRN (06:00)
[2016-12-29] MEDS ORDERED: MoRPHine SULFATE 2 MG/ML CARP IV PRN (06:00)
[2016-12-29] MEDS ORDERED: POLYETHYLENE (MIRALAX) 17 GM PACK PO PRN (06:00)
--- NOTE | 2016-12-29 06:10 | History and Physical ---
History & Physical Date & Time of Service: Dec 29, 2016 at 06:01 Chief Complaint: Kidney Pain- Surgery Last Week, Stent Out T-1 Primary Care Physician: Marlene Velásquez M.D. History of Present Illness Source: patient, family This is a pleasant 86 y/o F who presents with left sided flank pain since early this morning. Pain was a 10/10 on arrival. She did have some accompanying nausea. Denies fevers/chills. She also did not some gross hematuria. She was admitted about 2 weeks ago for another stone and underwent cystoscopy with stent placement. The stent was removed in office yesterday. Past Medical/Surgical History Medical Problems: (1) CORONARY ATHEROSCLEROSIS OF [place] CORONARY VESSEL Status: Chronic (2) ESOPHAGEAL REFLUX Status: Chronic (3) HIP JOINT REPLACEMENT STATUS Status: Resolved (4) Hyperlipidemia Status: Chronic (5) Hypertension Status: Chronic (6) Kidney stones Status: Resolved (7) Noncompliance with medications Status: Chronic Family History Kidney stones Social History Smoking Status: Never Smoker Alcohol Use: none Drug Use: none Marital Status: Housing status: lives with significant other Occupational Status: retired Immunizations History of Influenza Vaccine: No Influenza Vaccine Date: Mar 17, 2012 History of Tetanus Vaccine?: Unknown History of Pneumococcal: No Pneumococcal Date: Mar 17, 2012 History of Hepatitis B Vaccine: No Multi-Drug Resistant Organisms History of MDRO: No Allergies Coded Allergies: Celecoxib (Verified Allergy, Mild, ITCHING, 12/23/16) Home Medications Scheduled PRN Oxybutynin Chloride (Ditropan), 5 MG PO BID PRN for PRN Oxycodone/Acetaminophen 5MG/325MG (Percocet 5MG/325MG), 1 TABLET PO Q4H PRN for Pain Phenazopyridine HCl (Pyridium), 200 MG PO TID PRN for PRN Review of Systems Constitutional: No fever, No chills, No sweats Eyes: No worsening of vision Respiratory: No cough, No sputum, No wheezing, No shortness of breath, No dyspnea on exertion, No dyspnea at rest Cardiovascular: No chest pain Abdomen: + pain, + nausea Genitourinary - Female: + dysuria, + hematuria, No urinary frequency, No urinary urgency Physical Exam Vital Signs Date Time Temp Pulse Resp B/P (MAP) Pulse Ox O2 Delivery O2 Flow Rate FiO2 12/29/16 05:13 73 20 148/71 98 Room Air 12/29/16 03:33 36.9 85 20 171/75 97 Room Air General Appearance: no apparent distress Eyes: PERRL, EOMI ENT: hearing grossly normal Neck: supple, thyroid normal Respiratory/Chest: lungs clear, normal breath sounds, no respiratory distress, no accessory muscle use Cardiovascular: regular rate, rhythm, no edema, no murmur, normal peripheral pulses Abdomen/GI: normal bowel sounds, soft, + tenderness (LLQ) Back: no CVA tenderness Extremities/Musculoskelatal: no calf tenderness, no pedal edema, normal range of motion Neurologic/Psych: no motor/sensory deficits, alert, normal mood/affect, oriented x 3 Diagnostics Laboratory Results Results Past 24 Hours Test 12/29/16 04:00 12/29/16 04:05 12/29/16 04:11 Range/Units White Blood Count 8.78 4.8-10.8 K/uL Red Blood Count 4.70 4.2-5.4 M/uL Hemoglobin 13.4 12.0-16.0 g/dL Hematocrit 41.0 37-47 % Mean Corpuscular Volume 87.2 80-100 fL Mean Corpuscular Hemoglobin 28.5 25-34 pg Mean Corpuscular Hemoglobin Concent 32.7 32-36 g/dl Platelet Count 331 130-400 K/uL Mean Platelet Volume 9.2 7.4-10.4 fL Neutrophils (%) (Auto) 75.8 % Lymphocytes (%) (Auto) 12.6 % Monocytes (%) (Auto) 9.1 % Eosinophils (%) (Auto) 1.8 % Basophils (%) (Auto) 0.5 % Neutrophils # (Auto) 6.65 1.4-6.5 K/uL Lymphocytes # (Auto) 1.11 1.2-3.4 K/uL Monocytes # (Auto) 0.80 0.11-0.59 K/uL Eosinophils # (Auto) 0.16 0-0.5 K/uL Basophils # (Auto) 0.04 0-0.2 K/uL RDW Standard Deviation 40.0 36.4-46.3 fL RDW Coefficient of Variation 12.5 11.5-14.5 % Immature Granulocyte % (Auto) 0.2 % Immature Granulocyte # (Auto) 0.02 0.00-0.02 K/uL Sodium Level 141 136-145 mmol/L Potassium Level 3.9 3.5-5.1 mmol/L Chloride Level 111 98-107 mmol/L Carbon Dioxide Level 21 21-32 mmol/L Anion Gap 9.0 17.0 16-25 mmol/L Blood Urea Nitrogen 17 7-18 mg/dl Creatinine 1.21 0.60-1.20 mg/dl Est Creatinine Clear Calc Drug Dose 30.6 ml/min Estimated GFR () 46.6 Estimated GFR (Non- 40.2 BUN/Creatinine Ratio 14.0 10-20 Random Glucose 108 70-99 mg/dl Calcium Level 8.6 8.5-10.1 mg/dl Total Bilirubin 0.3 0.2-1 mg/dl Direct Bilirubin < 0.1 0-0.2 mg/dl Aspartate Amino Transf (AST/SGOT) 20 15-37 U/L Alanine Aminotransferase (ALT/SGPT) 16 12-78 U/L Alkaline Phosphatase 106 45-117 U/L Total Protein 6.8 6.4-8.2 gm/dl Albumin 3.2 3.4-5.0 gm/dl Lipase 267 73-393 U/L Urine Color ORANGE Urine Appearance SLIGHTLY CLOUDY CLEAR Urine pH 4.5-7.5 Urine Specific [place] 1.021 1.000-1.030 Urine Protein POS NEG Urine Glucose (UA) NEG Urine Ketones NEG Urine Occult Blood NEG Urine Nitrite NEG Urine Bilirubin NEG Urine Urobilinogen NEG Urine Leukocyte Esterase NEG Urine RBC >30 0-4 /hpf Urine WBC 10-30 0-5 /hpf Urine Epithelial Cells >30 0-5 /lpf Urine Calcium Oxalate Crystals PRESENT NONE PRSENT Urine Bacteria NEG NEG Urine Hyaline Casts 5-10 0-5 /lpf Urine Mucus PRESENT NONE PRSENT Bedside Hemoglobin 13.6 12.0-16.0 g/dl Bedside Hematocrit 40 37-47 % Bedside Sodium 141 135-144 mEq/L Bedside Potassium 3.9 3.3-5.0 mEq/L Bedside Chloride 108 101-112 mEq/L Bedside Total CO2 20 24-31 mEq/l Bedside Blood Urea Nitrogen 17 7-18 mg/dl Bedside Creatinine 1.2 0.6-1.3 mg/dl Bedside Glucose (other) 106 70-99 mg/dl Bedside Ionized Calcium (Ronald) 1.13 1.12-1.32 mmol/l Microbiology Results 12/29/16 Urine Culture, Received Pending Impression Assessment and Plan 86 y/o female with a history of 14 kidney stones, CAD, and HLD who presents with Left flank pain. She reports that her stent was removed yesterday. She is currently afebrile with stable VS. Left ureteral stone CT abd/pelvis showing a 1.4 cm stone at distal left ureter with severe hydroureteronephrosis, perinephric stranding -Admit to med/surg -NSS -Morphine 2 mg IV q4h -Zofran 4 mg IV -Flomax 0.4 mg -Consult urology -NPO CAD s/p stents Aspirin was dc'd by urology outpatient HTN Hydralazine Prn supposedly controlled at home DVT prophylaxis -Hold chemical prophylaxis -WIN and SCDs Code Status Full .Attending Addendum: I have physically seen and examined this patient, have directed the medical observer medical activities, and agree with the H&P as noted above with the following exceptions as noted. Assessment and Plan: Left ureteral stone/severe left hydroureteronephrosis/perinephric and periureteral stranding-- Admit to MedSurg. Nothing by mouth except medications. NSS Ceftriaxone 1 g IV daily. Morphine 2 mg IV every 4 hours when necessary Zofran 4 mg IV every 6 hours when necessary Flomax 0.4 mg by mouth at bedtime. Consult urology CAD/hypertension-- Hold aspirin. Hydralazine 10 mg IV every 4 hours when necessary systolic blood pressure is 160 Level of Care Med/Surg Resuscitation Status FULL RESUSCITATION VTE Prophylaxis VTE Risk Assessment Done? Y/N: Yes Risk Level: Moderate Given or contraindicated: SCD's Social Service Consult None Apply
[2016-12-29] MEDS ORDERED: HydrALAZINE HCL 20 MG/ML VIAL IV. PRN (06:15)
[2016-12-29] MEDS ORDERED: HYDROmorphone INJ 1 MG/ML SYR ONE (06:23)
[2016-12-29] MEDS ORDERED: CEFTRIAXONE SOD INJ 1 GM in DEXTROSE 5% ADD-VANTAGE 50ML 50 ML IV STA (06:24)
[2016-12-29] MEDS ORDERED: CEFTRIAXONE SOD INJ 1 GM ADDVIAL IV STA (06:28)
[2016-12-29] MEDS ORDERED: HYDROmorphone INJ 1 MG/ML SYR IV PRN (06:30)
--- NOTE | 2016-12-29 07:02 | DIAGNOSTIC IMAGING REPORT ---
CT OF THE ABDOMEN AND PELVIS WITH CONTRAST CLINICAL HISTORY: Left flank pain. Stent out earlier in day. COMPARISON STUDY: CT of the abdomen and pelvis December 10, 2016 and KUB December 27, 2016. TECHNIQUE: Following IV administration of 93 mL of Optiray-320, axial images of the abdomen and pelvis were obtained from the lung bases to the proximal femurs. Images were reviewed in the axial, sagittal, and coronal planes. IV contrast was administered without complication. A dose lowering technique was utilized adhering to the principles of ALARA. CT DOSE: 393.40 mGy.cm FINDINGS: The left ureteral stent has been removed. There is severe left hydroureteronephrosis with moderate left perinephric and periureteral infiltration as well as wall thickening and enhancement of the left ureter. Note is made of a 1.2 x 0.8 cm distal left ureteral calculus/fragment. There may be smaller adjacent distal left ureteral fragments. 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 The liver, spleen, adrenal glands and pancreas are unremarkable. There is a moderate to large hiatal hernia with partially intrathoracic stomach. There is no evidence for a bowel obstruction. Images of the pelvis are degraded from streak artifact from the bilateral hip arthroplasties. There is sigmoid diverticulosis without evidence for acute diverticulitis. The left nephrogram is delayed due to the obstruction. There are right-sided parapelvic cysts. Subcentimeter bilateral renal lesions are too small to characterize but likely reflect cysts. IMPRESSION: Severe left hydroureteronephrosis due to a 1.2 x 0.8 cm distal left ureteral calculus/fragment a few possible smaller adjacent fragments. Moderate left perinephric and periureteral infiltration. Wall thickening and enhancement of the left ureter is nonspecific and may be related to the obstruction or recent indwelling stent. However, a superimposed infection could appear similar. Electronically signed by: Octavio Cardenas M.D. 12/29/2016 7:00 AM Dictated Date/Time: 12/29/2016 6:51 AM
[2016-12-29] MEDS: CEFTRIAXONE SOD INJ 1 GM in DEXTROSE 5% ADD-VANTAGE 50ML 50 ML IV SCH (07:50)
[2016-12-29] MEDS: SODIUM CHLORIDE 0.9% 1000ML 1,000 ML IV SCH ×2 (07:50→21:22)
[2016-12-29] MEDS ORDERED: INFLUENZA ADMINISTRATION CHARGE ONE (08:30)
[2016-12-29] MEDS ORDERED: INFLUENZA VACCINE HIGH DOSE 65+ 0.5 ML SYR IM. ONE (08:30)
[2016-12-29] MEDS: TAMSULOSIN HCL 0.4 MG CAP PO SCH (08:39)
--- NOTE | 2016-12-29 09:18 | Urology Consultation ---
History General Date of Service: Dec 29, 2016. Chief Complaint: left flank pain Primary Care Physician: Marlene Velásquez M.D. Pt seen a urologist before?: Yes (Dr. Feldman) If yes, why?: left ureteral stone History of Present Illness 86 yo female presents to [facility] with c/o severe left flank pain 12/06. She has a hx of left ureteral stones and stent placement. Left ureteral stent removed by Dr. Feldman as an outpatient yesterday at the pt's request as she did not wish to undergo further anesthesia for stone management d/t concerns for possible development of dementia after anesthesia. Unfortunately the pt was not unable to pass the fragments on her own, and ended up admitted for pain. CT scan showing a large 1.2cm distal left ureteral stone. White count is normal. She is afebrile. Cr is 1.21. UC&S is pending. Imaging Imaging: CT Laboratory Last 24 Hours Test 12/29/16 04:00 12/29/16 04:05 12/29/16 04:11 White Blood Count 8.78 K/uL Red Blood Count 4.70 M/uL Hemoglobin 13.4 g/dL Hematocrit 41.0 % Mean Corpuscular Volume 87.2 fL Mean Corpuscular Hemoglobin 28.5 pg Mean Corpuscular Hemoglobin Concent 32.7 g/dl Platelet Count 331 K/uL Mean Platelet Volume 9.2 fL Neutrophils (%) (Auto) 75.8 % Lymphocytes (%) (Auto) 12.6 % Monocytes (%) (Auto) 9.1 % Eosinophils (%) (Auto) 1.8 % Basophils (%) (Auto) 0.5 % Neutrophils # (Auto) 6.65 K/uL Lymphocytes # (Auto) 1.11 K/uL Monocytes # (Auto) 0.80 K/uL Eosinophils # (Auto) 0.16 K/uL Basophils # (Auto) 0.04 K/uL RDW Standard Deviation 40.0 fL RDW Coefficient of Variation 12.5 % Immature Granulocyte % (Auto) 0.2 % Immature Granulocyte # (Auto) 0.02 K/uL Sodium Level 141 mmol/L Potassium Level 3.9 mmol/L Chloride Level 111 mmol/L Carbon Dioxide Level 21 mmol/L Anion Gap 9.0 mmol/L 17.0 mmol/L Blood Urea Nitrogen 17 mg/dl Creatinine 1.21 mg/dl Est Creatinine Clear Calc Drug Dose 30.6 ml/min Estimated GFR () 46.6 Estimated GFR (Non- 40.2 BUN/Creatinine Ratio 14.0 Random Glucose 108 mg/dl Calcium Level 8.6 mg/dl Total Bilirubin 0.3 mg/dl Direct Bilirubin < 0.1 mg/dl Aspartate Amino Transf (AST/SGOT) 20 U/L Alanine Aminotransferase (ALT/SGPT) 16 U/L Alkaline Phosphatase 106 U/L Total Protein 6.8 gm/dl Albumin 3.2 gm/dl Lipase 267 U/L Urine Color ORANGE Urine Appearance SLIGHTLY CLOUDY Urine pH Urine Specific [place] 1.021 Urine Protein POS Urine Glucose (UA) Urine Ketones Urine Occult Blood Urine Nitrite Urine Bilirubin Urine Urobilinogen Urine Leukocyte Esterase Urine RBC >30 /hpf Urine WBC 10-30 /hpf Urine Epithelial Cells >30 /lpf Urine Calcium Oxalate Crystals PRESENT Urine Bacteria NEG Urine Hyaline Casts 5-10 /lpf Urine Mucus PRESENT Bedside Hemoglobin 13.6 g/dl Bedside Hematocrit 40 % Bedside Sodium 141 mEq/L Bedside Potassium 3.9 mEq/L Bedside Chloride 108 mEq/L Bedside Total CO2 20 mEq/l Bedside Blood Urea Nitrogen 17 mg/dl Bedside Creatinine 1.2 mg/dl Bedside Glucose (other) 106 mg/dl Bedside Ionized Calcium (Ronald) 1.13 mmol/l Problem List Medical Problems: (1) Hydronephrosis, left Status: Acute (2) Intractable pain Status: Acute (3) Urinary tract obstruction by kidney stone Status: Acute Past History coronary artery disease, GERD, high cholesterol, hypertension, kidney stones Past Surgical History: THR, ureteral stent Family History Kidney stones Social History Hx Tobacco Use In Past Year?: No Alcohol: never Drug use: none Marital status: Housing status: lives with significant other Occupation status: retired Immunizations History of Influenza Vaccine: No Influenza Vaccine Date: Mar 17, 2012 History of Tetanus Vaccine?: Unknown History of Pneumococcal: No Pneumococcal Date: Mar 17, 2012 History of Hepatitis B Vaccine: No History of MDRO No Allergies Coded Allergies: Celecoxib (Verified Allergy, Mild, ITCHING, 12/23/16) Medications Home Medications: Home Meds and Scripts Medications Dose Route/Sig Max Daily Dose Days Date Category Percocet 5MG/325MG (Oxycodone/Acetaminophen) Tab 1 Tablet PO Q4H PRN 12/23/16 Rx Ditropan (Oxybutynin Chloride) 5 Mg Tab 5 Mg PO BID PRN 12/22/16 Reported Pyridium (Phenazopyridine HCl) 200 Mg Tab 200 Mg PO TID PRN 12/22/16 Reported Inpatient Medications: Current Inpatient Medications Medications (Trade) Dose Ordered Sig/Deepika Route Start Time Stop Time Status Last Admin Dose Admin Ioversol (Optiray 320) 100 ml UD PRN IV 12/29/16 04:00 01/02/17 03:59 Acetaminophen (Tylenol Tab) 650 mg Q4H PRN PO 12/29/16 06:00 01/28/17 05:59 Al Hydrox/Mg Hydrox/Simethicone (Maalox Max Susp) 15 ml Q4H PRN PO 12/29/16 06:00 01/28/17 05:59 Magnesium Hydroxide (Milk Of Magnesia Susp) 30 ml Q6H PRN PO 12/29/16 06:00 01/28/17 05:59 Polyethylene (Miralax Powder Packet) 17 gm DAILY PRN PO 12/29/16 06:00 01/28/17 05:59 Ondansetron HCl (Zofran Inj) 4 mg Q6H PRN IV 12/29/16 06:00 01/28/17 05:59 Morphine Sulfate (MoRPHine SULFATE INJ) 2 mg Q4 PRN IV 12/29/16 06:00 01/12/17 05:59 Tamsulosin HCl (Flomax Cap) 0.4 mg QAM PO 12/29/16 09:00 01/28/17 08:59 12/29/16 08:39 0.4 MG Sodium Chloride 1,000 ml @ 80 mls/hr [id number] IV 12/29/16 07:00 01/28/17 06:59 12/29/16 07:50 80 MLS/HR Oxybutynin Chloride (Ditropan Tab) 5 mg BID PRN PO 12/29/16 06:00 01/28/17 05:59 Phenazopyridine HCl (Pyridium Tab) 200 mg TID PRN PO 12/29/16 06:00 01/28/17 05:59 Hydralazine HCl (HydrALAZINE INJ) 10 mg Q6H PRN IV. 12/29/16 06:15 01/28/17 06:14 Hydromorphone HCl (Dilaudid Inj) 1 mg Q30M PRN IV 12/29/16 06:30 01/12/17 05:59 Ceftriaxone Sodium 1 gm/ Dextrose 50 ml @ 100 mls/hr Q24H IV 12/29/16 07:00 01/08/17 06:59 12/29/16 07:50 100 MLS/HR Review of Systems Review of Systems Constitutional: No fever, No chills Eyes: No double vision Neurological: No dizzy Endocrine: No excessive thirst Gastrointestinal: + abdominal pain (LLQ and flank ), No nausea, No vomiting Cardiovascular: No chest pain Respiratory: No shortness of breath Skin: No rash Musculoskeletal: + arthritis Female : + kidney stones Physical Exam Vital Signs: Vital Signs Past 12 Hours Date Time Temp Pulse Resp B/P (MAP) Pulse Ox O2 Delivery O2 Flow Rate FiO2 12/29/16 06:53 36.8 52 17 148/70 (96) 98 Room Air 12/29/16 06:31 36.8 56 16 165/63 97 Room Air 12/29/16 06:15 53 20 150/73 98 12/29/16 05:13 73 20 148/71 98 Room Air 12/29/16 03:33 36.9 85 20 171/75 97 Room Air Physical Exam: General Appearance: no apparent distress Eyes: bilateral eyes normal inspection ENT: hearing grossly normal Neck: no JVD Respiratory/Chest: no respiratory distress, no accessory muscle use Cardiovascular: no JVD Extremities: normal inspection Neurologic/Psychiatric: alert, normal mood/affect, oriented x 3 Skin: normal color Assessment & Plan Assessment & Plan Treatment Planned: ureteroscopy w/ laser, cystoscopy w/ stent A/P: Distal left ureteral stone AFVSS. Pt with persistent pain and large residual stone fragments. Will plan for a cystoscopy with left ureteroscopy and laser lithotripsy and left ureteral stent placement today. Possible emiliano plication/cystocele repair as well. Risks and benefits of the procedure discussed with the pt. All questions answered. Pt agrees to the procedure at this time. Consent obtained by Dr. Feldman. Thanks for the consult. Will continue to follow along with primary service. The pt was seen and assessed with Dr. Feldman this morning.
[2016-12-29] MEDS ORDERED: CIPROFLOXACIN 400MG / 200ML D5W IV SCH (09:30)
--- NOTE | 2016-12-29 12:52 | Family Medicine Progress Note ---
Progress Note Date of Service Dec 29, 2016. Subjective Pt evaluation today including: conversation w/ patient, physical exam, chart review, lab review, review of studies Pain: controlled PO Intake: NPO Pt is lying in bed comfortably, is conversational and denies pain at the time. Reports that she did experience a lot of pain in her left flank that increased in intensity last night. Yesterday she had been seen by her urologist in the clinic to remove the stent, with no complications. Says she has an extensive history of kidney stones, but hasn't had one since 6 years ago. Pt is scheduled to have surgery today at 1600, discussed with pt that we are here as hospitalist team to take care of any needs she may have. Constitutional: No fever, No chills Respiratory: No shortness of breath Cardiovascular: No chest pain, No edema Abdomen: + pain (pain absent since morphine begun) Musculoskeletal: No joint pain, No muscle pain Medications Current Inpatient Medications Medications (Trade) Dose Ordered Sig/Deepika Route Start Time Stop Time Status Last Admin Dose Admin Ioversol (Optiray 320) 100 ml UD PRN IV 12/29/16 04:00 01/02/17 03:59 Acetaminophen (Tylenol Tab) 650 mg Q4H PRN PO 12/29/16 06:00 01/28/17 05:59 Al Hydrox/Mg Hydrox/Simethicone (Maalox Max Susp) 15 ml Q4H PRN PO 12/29/16 06:00 01/28/17 05:59 Magnesium Hydroxide (Milk Of Magnesia Susp) 30 ml Q6H PRN PO 12/29/16 06:00 01/28/17 05:59 Polyethylene (Miralax Powder Packet) 17 gm DAILY PRN PO 12/29/16 06:00 01/28/17 05:59 Ondansetron HCl (Zofran Inj) 4 mg Q6H PRN IV 12/29/16 06:00 01/28/17 05:59 Morphine Sulfate (MoRPHine SULFATE INJ) 2 mg Q4 PRN IV 12/29/16 06:00 01/12/17 05:59 Tamsulosin HCl (Flomax Cap) 0.4 mg QAM PO 12/29/16 09:00 01/28/17 08:59 12/29/16 08:39 0.4 MG Sodium Chloride 1,000 ml @ 80 mls/hr [id number] IV 12/29/16 07:00 01/28/17 06:59 12/29/16 07:50 80 MLS/HR Oxybutynin Chloride (Ditropan Tab) 5 mg BID PRN PO 12/29/16 06:00 01/28/17 05:59 Phenazopyridine HCl (Pyridium Tab) 200 mg TID PRN PO 12/29/16 06:00 01/28/17 05:59 Hydralazine HCl (HydrALAZINE INJ) 10 mg Q6H PRN IV. 12/29/16 06:15 01/28/17 06:14 Hydromorphone HCl (Dilaudid Inj) 1 mg Q30M PRN IV 12/29/16 06:30 01/12/17 05:59 Ceftriaxone Sodium 1 gm/ Dextrose 50 ml @ 100 mls/hr Q24H IV 12/29/16 07:00 01/08/17 06:59 12/29/16 07:50 100 MLS/HR Ciprofloxacin/ Dextrose (Cipro / D5W) 400 mg PREOP IV 12/29/16 09:30 12/29/16 23:59 Objective Physical Exam General Appearance: WD/WN, no apparent distress Eyes: normal inspection, EOMI Respiratory/Chest: chest non-tender, lungs clear, normal breath sounds, no respiratory distress Cardiovascular: regular rate, rhythm, no edema, no gallop Abdomen: normal bowel sounds, soft, + pertinent finding (mild tenderness noted at LT flank and LLQ) Neurologic/Psychiatric: alert, normal mood/affect, oriented x 3 Skin: normal color, warm/dry, no rash Laboratory Results 12/29/16 04:00 Red Blood Count 4.70, Mean Corpuscular Volume 87.2, Mean Corpuscular Hemoglobin 28.5, Mean Corpuscular Hemoglobin Concent 32.7, Mean Platelet Volume 9.2, Neutrophils (%) (Auto) 75.8, Lymphocytes (%) (Auto) 12.6, Monocytes (%) (Auto) 9.1, Eosinophils (%) (Auto) 1.8, Basophils (%) (Auto) 0.5, Neutrophils # (Auto) 6.65, Lymphocytes # (Auto) 1.11, Monocytes # (Auto) 0.80, Eosinophils # (Auto) 0.16, Basophils # (Auto) 0.04 12/29/16 04:00 Test 12/29/16 04:00 12/29/16 04:05 12/29/16 04:11 White Blood Count 8.78 K/uL (4.8-10.8) Red Blood Count 4.70 M/uL (4.2-5.4) Hemoglobin 13.4 g/dL (12.0-16.0) Hematocrit 41.0 % (37-47) Mean Corpuscular Volume 87.2 fL (80-100) Mean Corpuscular Hemoglobin 28.5 pg (25-34) Mean Corpuscular Hemoglobin Concent 32.7 g/dl (32-36) Platelet Count 331 K/uL (130-400) Mean Platelet Volume 9.2 fL (7.4-10.4) Neutrophils (%) (Auto) 75.8 % Lymphocytes (%) (Auto) 12.6 % Monocytes (%) (Auto) 9.1 % Eosinophils (%) (Auto) 1.8 % Basophils (%) (Auto) 0.5 % Neutrophils # (Auto) 6.65 K/uL (1.4-6.5) Lymphocytes # (Auto) 1.11 K/uL (1.2-3.4) Monocytes # (Auto) 0.80 K/uL (0.11-0.59) Eosinophils # (Auto) 0.16 K/uL (0-0.5) Basophils # (Auto) 0.04 K/uL (0-0.2) RDW Standard Deviation 40.0 fL (36.4-46.3) RDW Coefficient of Variation 12.5 % (11.5-14.5) Immature Granulocyte % (Auto) 0.2 % Immature Granulocyte # (Auto) 0.02 K/uL (0.00-0.02) Est Creatinine Clear Calc Drug Dose 30.6 ml/min Estimated GFR () 46.6 Estimated GFR (Non- 40.2 BUN/Creatinine Ratio 14.0 (10-20) Calcium Level 8.6 mg/dl (8.5-10.1) Total Bilirubin 0.3 mg/dl (0.2-1) Direct Bilirubin < 0.1 mg/dl (0-0.2) Aspartate Amino Transf (AST/SGOT) 20 U/L (15-37) Alanine Aminotransferase (ALT/SGPT) 16 U/L (12-78) Alkaline Phosphatase 106 U/L (45-117) Total Protein 6.8 gm/dl (6.4-8.2) Albumin 3.2 gm/dl (3.4-5.0) Lipase 267 U/L (73-393) Urine Color ORANGE Urine Appearance SLIGHTLY CLOUDY (CLEAR) Urine pH (4.5-7.5) Urine Specific [place] 1.021 (1.000-1.030) Urine Protein POS (NEG) Urine Glucose (UA) (NEG) Urine Ketones (NEG) Urine Occult Blood (NEG) Urine Nitrite (NEG) Urine Bilirubin (NEG) Urine Urobilinogen (NEG) Urine Leukocyte Esterase (NEG) Urine RBC >30 /hpf (0-4) Urine WBC 10-30 /hpf (0-5) Urine Epithelial Cells >30 /lpf (0-5) Urine Calcium Oxalate Crystals PRESENT (NONE PRSENT) Urine Bacteria NEG (NEG) Urine Hyaline Casts 5-10 /lpf (0-5) Urine Mucus PRESENT (NONE PRSENT) Bedside Hemoglobin 13.6 g/dl (12.0-16.0) Bedside Hematocrit 40 % (37-47) Bedside Sodium 141 mEq/L (135-144) Bedside Potassium 3.9 mEq/L (3.3-5.0) Bedside Chloride 108 mEq/L (101-112) Bedside Total CO2 20 mEq/l (24-31) Anion Gap 17.0 mmol/L (16-25) Bedside Blood Urea Nitrogen 17 mg/dl (7-18) Bedside Creatinine 1.2 mg/dl (0.6-1.3) Bedside Glucose (other) 106 mg/dl (70-99) Bedside Ionized Calcium (Ronald) 1.13 mmol/l (1.12-1.32) Assessment and Plan 86 F here for acute nephrolithiasis, LT ureteral calculus. LT ureteral stone CT abdomen shows 1.4 cm stone, associated infection equivocal. Pt is AFF, WBC wnl. Continue NSS, Morphine 2mg IV q4, Sofran 4 mg IV, Flowmax 0.4 mg. NPO. Urological surgery scheduled for later this afternoon: cystoscopy with left ureteroscopy and laser lithotripsy and left ureteral stent placement today. Possible emiliano plication/cystocele repair as well. CAD s/p stents no home aspirin HTN no home antihypertensives DVT: holding chem ppx, WIN, SCD's Code: FULL Resident Physician Supervision Note: I was present with Dr. Cordova during the history and exam. I discussed the case with the resident and agree with the findings and plan as documented in the note. A Documented By: Anthony Reich Continued [facility] stay due to: multiple IV medications needed, other (awaiting urgent surgery) Discharge planning: home Resident Tracking Resident Involvement: Resident Care Provided Care Provided: Adult Hospital Medicine
[2016-12-29] MEDS ORDERED: DEXAMETHASONE SOD INJ 4 MG/ML VIAL ONE (16:36)
[2016-12-29] MEDS ORDERED: FENTANYL CITRATE INJ 50 MCG/1 ML 2 ML VIAL ONE (16:36)
[2016-12-29] MEDS ORDERED: MIDAZOLAM HCL 1 MG/ML 2ML VIAL ONE (16:36)
[2016-12-29] MEDS ORDERED: ONDANSETRON INJ 2 MG/ML 2 ML VIAL ONE (16:36)
[2016-12-29] MEDS ORDERED: LIDOCAINE HCL 2% 2 ML VIAL (20MG/ML) ONE (16:36)
[2016-12-29] MEDS ORDERED: PROPOFOL IV EMULSION 10 MG/ML 20 ML VIAL IV ONE (16:36)
[2016-12-29] MEDS ORDERED: CONRAY 30% 150ML BOTTLE ONE (17:40)
[2016-12-29] MEDS ORDERED: LIDOCAINE/EPINEPHRINE 1% 20 ML VIAL ONE (17:40)
[2016-12-29] MEDS: SULFANILAMIDE 15% CR 120 GM TUBE ONE ×2 (18:42→18:55)
--- NOTE | 2016-12-29 18:48 | DIAGNOSTIC IMAGING REPORT ---
RETROGRADE INCLUDES KUB CLINICAL HISTORY: LT CYSTO/LASER/STENT COMPARISON STUDY: No previous studies for comparison. FINDINGS: 117 seconds of fluoroscopic time was utilized. 2 intraoperative fluoroscopic spot films are provided for interpretation. Image #1 demonstrates a guidewire coiled within the upper pole calyx. There is left-sided hydronephrosis. Image #2 demonstrates the proximal pigtail of a left-sided nephroureteral stent. There is been partial decompression of the collecting system. IMPRESSION: Intraoperative fluoroscopic spot images obtained during reported laser lithotripsy and placement of a left-sided nephroureteral stent. Electronically signed by: Neo Yepez M.D. 12/29/2016 6:47 PM Dictated Date/Time: 12/29/2016 6:46 PM
--- NOTE | 2016-12-29 19:01 | [facility] Post Operative Brief Note ---
Immediate Operative Summary Operative Date Dec 29, 2016. Pre-Operative Diagnosis Left ureteral and renal stones, intractable colic, prolapsing cystocoele Post-Operative Diagnosis Left ureteral and renal stones, intractable colic, prolapsing cystocoele, cervical descent Procedure(s) Performed Cystoscopy, left retrograde pyelography, left semirigid and flexible ureteroscopy with laser lithotripsy, basket stone extraction, left ureteral stent placement, Niyah plication Surgeon Gaston Hartmann Construction Rigger Surgeon(s) NA Estimated Blood Loss 60 cc Findings No residual stones or ureteral injury on ureteroscopy, renal fragments flushed free, good stent position on fluoroscopy, cervical descent noted - cystocoele reduced and plicated. Specimens L ureteral and renal stones for chemical analysis Anterior vaginal mucosa Drains Left 6 fr 26 cm JJ ureteral stent Anesthesia [facility] Complication(s) None Disposition Recovery Room / PACU
--- NOTE | 2016-12-29 19:11 | [facility] Operative Report ---
Operative Report Operative Date Dec 29, 2016. Pre-Operative Diagnosis Left ureteral and renal stones, intractable colic, prolapsing cystocoele Post-Operative Diagnosis Left ureteral and renal stones, intractable colic, prolapsing cystocoele, cervical descent Procedure(s) Performed Cystoscopy, left retrograde pyelography, left semirigid and flexible ureteroscopy with laser lithotripsy, basket stone extraction, left ureteral stent placement, Niyah plication Surgeon Gaston Hartmann Hand Ironer Surgeon(s) NA Estimated Blood Loss 60 cc Findings No residual stones or ureteral injury on ureteroscopy, renal fragments flushed free, good stent position on fluoroscopy, cervical descent noted - cystocoele reduced and plicated. Specimens L ureteral and renal stones for chemical analysis Anterior vaginal mucosa Drains 6 fr 26 cm L JJ ureteral stent Anesthesia GALMA Complication(s) None Disposition Recovery Room / PACU Indications 86-year-old female who is had her left ureteral stent removed after lithotripsy yesterday. She now presents with recurrent left renal colic. CT scan imaging demonstrates a distal left obstructing ureteral stone with hydronephrosis. Patient desires intervention. Will therefore proceed with endoscopic management of her stone. Patient also complains of bladder prolapse and was noted to have a cystocele on prior office examination. She desires to have this corrected as well under the same anesthetic seen her anxiety about anesthesia exposure. Will proceed. Intravenous ciprofloxacin provided for antibiotic coverage. SCDs used for DVT prophylaxis. Please see consultation for further details. Description of Procedure Patient was properly identified and brought into the operative suite after identification for appropriate consent of the chart. General anesthesia with laryngeal mask was initiated and patient was prepped and draped in standard fashion for this procedure. Full timeout procedure was followed. 22 Argentine rigid cystoscope was passed into the bladder under direct visualization bladder was surveyed in its entirety. Some residual edema at the left ureteral orifice consistent with recent stent removal was appreciated. Midline cystocele was noted. No intravesical lesions or papillary masses were appreciated. Stone fragments were noted to be free within the bladder consistent with previous fractured stone and stone passage. Left-sided ureteral orifice was cannulated using an open-ended catheter and gentle retrograde pyelography was performed. This demonstrated severe hydroureteronephrosis above the transition point in the distal ureter consistent with the patient's CT scan findings. Sensor tip wire was advanced up to the level of the left renal pelvis and kept until the end of the case as a safety wire. Semirigid ureteroscope was advanced into the distal ureter on the left-hand side an impacted stone cluster within the distal ureter was appreciated. Using a 270 fiber this was fragmented into small pieces which rapidly flushed free. ZeroTip basket was used to grasp resilient pieces and bring them out for chemical analysis. After this was complete the patient's ureter was cannulated using an Amplatz Super Stiff wire to check the kidney. The sensor wire was noted to be submucosal for a short period and replaced within the ureteral lumen. Ureteroscope was backloaded off of the working wire and a 14/16 Argentine 35 cm ureteral access sheath was advanced into the proximal ureter without difficulties. Complete pyeloscopy was performed and some small mobile stones within the kidney, likely retropulsed during distal ureteroscopy were flushed free. No stones were present within the kidney which required treatment for grasping. After a negative pyeloscopy was appreciated complete exit ureteroscopy was performed including removal of the access sheath demonstrating no evidence of ureteral injury or tears. Cystoscope was backloaded over the safety wire a 6 Argentine 26 cm left double-J ureteral stent was advanced in place with a full coil present within the left renal pelvis and a full coil present within the bladder. Bladder was drained stone fragments and urine and cystoscope was removed. Attention was then turned to the Niyah plication. 16 Argentine Rao catheter was placed within the bladder which was emptied with 10 mL of sterile water in the balloon. Allis clamp was placed on the anterior vaginal mucosa was then placed on traction. This was anesthetized using local with epinephrine with excellent blanching of the anterior vaginal mucosa. 15 blade was used to make a vertical incision and Metzenbaum scissors and peanuts were used to dissect the bladder from the cystocele sac laterally. When this reached the sidewall 2-0 Vicryl sutures were used in interrupted fashion to remove the bladder from the surgical field. Patient's cervix was noted to be quite mobile and involved in a central defect which was contributing to the patient's pelvic organ prolapse. Minimal rectocele component was present. Excess anterior vaginal mucosa was removed and sent for pathologic analysis. 0 Vicryl suture was used in a vertical mattress fashion to close the vaginal mucosa with return of the bladder to the correct location. Excellent hemostasis was appreciated. Cystoscopy was repeated with the 70 lens demonstrating no bladder injury internally and good stent position within the bladder. Vaginal packing was placed and Rao catheter was removed. Anesthesia was reversed patient's transient the recovery room in stable condition. Follow-up care: Patient will be readmitted to the primary service overnight. Should be stable for discharge home tomorrow with a short course of antibiotics. Will arrange for outpatient KUB and cystoscopy with stent removal. I attest to the content of the Intraoperative Record and any orders documented therein. Any exceptions are noted below.
[2016-12-29] MEDS ORDERED: EpHEDrine SULFATE INJ 50 MG/ML AMP IV PRN (19:45)
[2016-12-29] MEDS ORDERED: ATROPINE SULFATE 0.1 MG/ML 5ML SYR IV PRN (19:45)
--- NOTE | 2016-12-29 19:46 | Anesthesiology Progress Note ---
Anesthesia Post Op Note Date & Time Dec 29, 2016 at 19:45 Vital Signs Pain Intensity: 0 Vital Signs Past 12 Hours Date Time Temp Pulse Resp B/P (MAP) Pulse Ox O2 Delivery O2 Flow Rate FiO2 12/29/16 19:30 36.8 63 14 154/63 98 Room Air 12/29/16 19:20 69 20 142/64 95 Room Air 12/29/16 19:10 72 16 130/60 98 Oxymask 10 12/29/16 19:00 73 18 134/59 99 Oxymask 10 12/29/16 18:53 37.4 80 16 141/52 100 Oxymask 10 12/29/16 15:30 96 Room Air 12/29/16 15:17 36.7 62 18 109/64 (79) 96 Room Air Notes Mental Status: alert / awake / arousable, participated in evaluation Pt Amnestic to Procedure: Yes Nausea / Vomiting: adequately controlled Pain: adequately controlled Airway Patency, RR, SpO2: stable & adequate BP & HR: stable & adequate Hydration State: stable & adequate Anesthetic Complications: no major complications apparent
[2016-12-30 03:45] VITALS: BP 124/74; PULSE 57; TEMP 36.4; O2SAT 97
[2016-12-30] MEDS ORDERED: NURSING VERBAL MED ORDER ONE (04:15)
[2016-12-30] MEDS: CEFTRIAXONE SOD INJ 1 GM in DEXTROSE 5% ADD-VANTAGE 50ML 50 ML IV SCH (06:38)
[2016-12-30 07:34] LABS: HEMATOCRIT 36.7 % (37-47); MEAN CELL VOLUME 88.4 fL (80-100); MEAN CORPUSCULAR HEMOGLOBIN 29.4 pg (25-34); MEAN CORPUSCULAR HGB CONC 33.2 g/dl (32-36); MEAN PLATELET VOLUME 9.2 fL (7.4-10.4); PLATELET COUNT 244 K/uL (130-400); RED BLOOD COUNT 4.15 M/uL (4.2-5.4); WHITE BLOOD COUNT 6.34 K/uL (4.8-10.8)
[2016-12-30 08:01] LABS: BUN/CREATININE RATIO 9.6 (10-20); CALCIUM 8.3 mg/dl (8.5-10.1); CREATININE 1.29 mg/dl (0.60-1.20); POTASSIUM 3.9 mmol/L (3.5-5.1)
[2016-12-30 08:03] VITALS: BP 140/78; PULSE 58; TEMP 36.7; O2SAT 96
--- NOTE | 2016-12-30 08:25 | Progress Note ---
Subjective Date of Service: Dec 30, 2016. Subjective Pt evaluation today including: conversation w/ patient, chart review, lab review Voiding: no voiding problems 86 yo female s/p left URS and emiliano plication. Pt reports vaginal packing fell out. Denies pain. + gross hematuria. Cr is 1.29 this morning. UC&S pending. Problem List Medical Problems: (1) Hydronephrosis, left Status: Acute (2) Intractable pain Status: Acute (3) Urinary tract obstruction by kidney stone Status: Acute Review of Systems Constitutional: No fever, No chills Respiratory: No shortness of breath Cardiac: No chest pain Abdomen: No pain, No nausea, No vomiting Female : + hematuria Heme: No abnormal bleeding/bruising Objective Vital Signs Date Time Temp Pulse Resp B/P (MAP) Pulse Ox O2 Delivery O2 Flow Rate FiO2 12/30/16 08:03 36.7 58 17 140/78 (98) 96 Room Air 12/30/16 03:45 36.4 57 16 124/74 (91) 97 Room Air 12/29/16 22:07 36.6 66 16 138/75 (96) 98 Room Air 12/29/16 21:05 37.1 66 18 146/64 (91) 98 Room Air 12/29/16 20:36 36.7 59 16 149/69 (95) 97 Room Air 12/29/16 20:05 97 Room Air 12/29/16 20:05 Room Air 12/29/16 19:45 62 17 114/80 97 Room Air 12/29/16 19:30 36.8 63 14 154/63 98 Room Air 12/29/16 19:20 69 20 142/64 95 Room Air 12/29/16 19:10 72 16 130/60 98 Oxymask 10 12/29/16 19:00 73 18 134/59 99 Oxymask 10 12/29/16 18:53 37.4 80 16 141/52 100 Oxymask 10 12/29/16 15:30 96 Room Air 12/29/16 15:17 36.7 62 18 109/64 (79) 96 Room Air Physical Exam General Appearance: no apparent distress Eyes: normal inspection ENT: hearing grossly normal Neck: no JVD Respiratory/Chest: no respiratory distress, no accessory muscle use Cardiovascular: no JVD Extremities: normal inspection Neurologic/Psychiatric: alert, normal mood/affect, oriented x 3 Skin: normal color Laboratory Results Last 24 Hours Test 12/30/16 07:13 White Blood Count 6.34 K/uL Red Blood Count 4.15 M/uL Hemoglobin 12.2 g/dL Hematocrit 36.7 % Mean Corpuscular Volume 88.4 fL Mean Corpuscular Hemoglobin 29.4 pg Mean Corpuscular Hemoglobin Concent 33.2 g/dl RDW Standard Deviation 41.2 fL RDW Coefficient of Variation 12.8 % Platelet Count 244 K/uL Mean Platelet Volume 9.2 fL Sodium Level 141 mmol/L Potassium Level 3.9 mmol/L Chloride Level 111 mmol/L Carbon Dioxide Level 24 mmol/L Anion Gap 7.0 mmol/L Blood Urea Nitrogen 12 mg/dl Creatinine 1.29 mg/dl Est Creatinine Clear Calc Drug Dose 28.7 ml/min Estimated GFR () 43.1 Estimated GFR (Non- 37.2 BUN/Creatinine Ratio 9.6 Random Glucose 109 mg/dl Calcium Level 8.3 mg/dl Assessment and Plan POD #1 s/p left URS and emiliano plication AFVSS. Pt clinically stable and doing well. OK for d/c home from perspective. Recommend d/c home with on 5 days of Bactrim or Keflex. Will arrange for outpatient f/u with Dr. Feldman for stent removal in 7-10 days. Will also arrange for [facility] referral for POP. Will sign off for now. Recall PRN issues. Discharge planning: home
[2016-12-30 08:30] VITALS: O2SAT 96
[2016-12-30] MEDS: TAMSULOSIN HCL 0.4 MG CAP PO SCH (08:54)
[2016-12-30] MEDS: SODIUM CHLORIDE 0.9% 1000ML 1,000 ML IV SCH (08:54)
--- NOTE | 2016-12-30 09:00 | Anesthesiology Progress Note ---
Anesthesia Post Op Note Date & Time Dec 30, 2016 at 09:00 Vital Signs Pain Intensity: 0.0 Vital Signs Past 12 Hours Date Time Temp Pulse Resp B/P (MAP) Pulse Ox O2 Delivery O2 Flow Rate FiO2 12/30/16 08:30 96 Room Air 12/30/16 08:03 36.7 58 17 140/78 (98) 96 Room Air 12/30/16 08:00 Room Air 12/30/16 03:45 36.4 57 16 124/74 (91) 97 Room Air 12/29/16 22:07 36.6 66 16 138/75 (96) 98 Room Air 12/29/16 21:05 37.1 66 18 146/64 (91) 98 Room Air Notes Mental Status: alert / awake / arousable, participated in evaluation Pt Amnestic to Procedure: Yes Nausea / Vomiting: adequately controlled Pain: adequately controlled Airway Patency, RR, SpO2: stable & adequate BP & HR: stable & adequate Hydration State: stable & adequate Anesthetic Complications: no major complications apparent
[2016-12-30 11:24] VITALS: BP 150/74; PULSE 65; TEMP 36.7; O2SAT 97
[2016-12-30 12:10] VITALS: BP 140/78; PULSE 60; TEMP 37.2; O2SAT 94
--- NOTE | 2016-12-30 13:33 | Discharge Instructions ---
Discharge Instructions Date of Service Dec 30, 2016. Admission Reason for Admission: Kidney Stone Discharge Discharge Diagnosis / Problem: Kidney Stone Discharge Goals Goal(s): Decrease discomfort, Improve function, Increase independence, Improve disease control, Learn about illness, Therapeutic intervention Activity Recommendations Activity Limitations: as noted below Lifting Limitations: gradually increase as tolerated Exercise/Sports Limitations: as tolerated May Resume Sexual Activity: when tolerated Shower/Bathe: no limitations . Instructions / Follow-Up Instructions / Follow-Up You were admitted for a large kidney stone and treated with laser lithotripsy and ureteral stent placement. We are sending a prescription to your pharmacy for antibiotics. Please take these for 5 days as prescribed. of Bactrim or Keflex. The office will arrange for a follow up visit with Dr. Feldman for stent removal in 7-10 days. The office will also arrange for gynecology referral for pelvic organ prolapse treatment. Please continue to drink plenty of fluids. Thank you for allowing us to participate in your care. Current Hospital Diet Patient's current hospital diet: Regular Diet Discharge Diet Recommended Diet: Regular Diet Procedures Procedures Performed: Cystoscopy, left retrograde pyelography, left semirigid and flexible ureteroscopy with laser lithotripsy, basket stone extraction, left ureteral stent placement, Niyah plication Pending Studies Studies pending at discharge: no Medical Emergencies . Who to Call and When: Medical Emergencies: If at any time you feel your situation is an emergency, please call 911 immediately. . Non-Emergent Contact Non-Emergency issues call your: Primary Care Provider . . "Provider Documentation" section prepared by Ivy Cordova. . VTE Core Measure Inpt VTE Proph given/why not?: SCD's
[2016-12-30] MEDS ORDERED: KFL/250 PO (13:40)
--- NOTE | 2016-12-30 13:41 | Discharge Summary ---
Discharge Summary Date of Service Dec 30, 2016. (Ivy Cordova M.D.) Discharge Summary Admission Date: Dec 29, 2016 at 05:58 Discharge Date: Dec 30, 2016 Discharge Disposition: Home Principal Diagnosis: Kidney Stone Problems/Secondary Diagnoses: prolapsing cystocoele cervical descent Immunizations: Have You Had Influenza Vaccine: No Influenza Vaccine Date: Mar 17, 2012 History of Tetanus Vaccine?: Unknown History of Pneumococcal: No Pneumococcal Date: Mar 17, 2012 History of Hepatitis B Vaccine: No (Ivy Cordova M.D.) Medication Reconciliation New Medications: Cephalexin Monohydrate (Keflex) 250 Mg Cap 250 MG PO BID for 5 Days, #10 CAP Continued Medications: Oxybutynin Chloride (Ditropan) 5 Mg Tab 5 MG PO BID PRN for PRN, TAB Oxycodone/Acetaminophen 5MG/325MG (Percocet 5MG/325MG) Tab 1 TABLET PO Q4H PRN for Pain, #15 TAB Phenazopyridine HCl (Pyridium) 200 Mg Tab 200 MG PO TID PRN for PRN, #6 TAB Discharge Exam Review of Systems: Constitutional: No fever, No chills, No sweats Respiratory: No cough, No wheezing Cardiovascular: No chest pain, No edema, No palpitations Abdomen: No pain, No nausea, No vomiting, No diarrhea, No constipation Genitourinary - Female: No dysuria Physical Exam: General Appearance: WD/WN, no apparent distress Eyes: normal inspection, EOMI Respiratory/Chest: lungs clear, normal breath sounds, no respiratory distress Cardiovascular: regular rate, rhythm, no edema, no gallop, no JVD Abdomen / GI: normal bowel sounds, soft, + tenderness (very mild tenderness to palpation over LLQ) Extremities: normal inspection, no calf tenderness, no pedal edema Neurologic/Psychiatric: alert, normal mood/affect Skin: normal color, warm/dry, no rash (Ivy Cordova M.D.) Hospital Course Pt was admitted for intractable abdominal pain found to be on imaging due to a kidney stone in LT ureter. Pt has extensive PMH of kidney stones (>10) and is under the care of a urologist. Pt was seen in office two days ago to remove ureter stent, and later that day was in severe pain in her abdomen. On imaging, she was found to have severe left hydroureteronephrosis due to a 1.2 x 0.8 cm distal left ureteral calculus. Pt underwent cystoscopy, left retrograde pyelography, left semirigid and flexible ureteroscopy with laser lithotripsy, basket stone extraction, left ureteral stent placement, and Niyah plication. Follow up KUB and stent removal will follow. As well as [employer] referral for pelvic organ prolapse. Pt sent home on antibiotics and in stable medical condition. Total Time Spent: Greater than 30 minutes This includes examination of the patient, discharge planning, medication reconciliation, and communication with other providers. (Ivy Cordova M.D.) Resident Physician Supervision Note: I interviewed and examined the patient. Discussed with Dr. Cordova and agree with findings and plan as documented in the note. Any exceptions or clarifications are listed here: The patient felt well and was comfortable with being discharged home today. She denied chest pain or shortness of breath. She denied any leg or calf pain nor tenderness with my palpation. Documented By: Anthony Reich Total Time Spent: Less than 30 minutes (Anthony Reich.,D.O.) Discharge Instructions Please refer to the electronic Patient Visit Report (Discharge Instructions) for additional information. (Ivy Cordova M.D.) Additional Copies To Marlene Velásquez M.D. Resident Tracking Resident Involvement: Resident Care Provided Care Provided: Adult [facility] (Ivy Cordova M.D.)
[2016-12-30 13:58] VITALS: BP 140/78; PULSE 60; TEMP 37.2; O2SAT 94
== END 2016-12-30 15:00 | disposition home or self-care (01) | DRG 660 ==
LOC: C.EDB 03:31 → C.MSW 05:58 → ENRESERV 06:08
PROVIDERS: ADMIT Hospitalist; ATTEND Family Medicine
PROC: 0T778DZ Dilation of Left Ureter with Intraluminal Device, Via Natural or Artificial Opening Endoscopic (ICD-10-PCS; principal; 2016-12-29 17:15)
PROC: BT14ZZZ Fluoroscopy of Kidneys, Ureters and Bladder (ICD-10-PCS; principal; 2016-12-29 17:15)
PROC: 0TC74ZZ Extirpation of Matter from Left Ureter, Percutaneous Endoscopic Approach (ICD-10-PCS; principal; 2016-12-29 17:15)
DX: N20.0 Calculus of kidney (principal); N13.30 Unspecified hydronephrosis; N20.1 Calculus of ureter; N81.10 Cystocele, unspecified; I25.10 Atherosclerotic heart disease of native coronary artery without angina pectoris; K21.9 Gastro-esophageal reflux disease without esophagitis; I10 Essential (primary) hypertension; E78.5 Hyperlipidemia, unspecified; Z91.14 Patient's other noncompliance with medication regimen; Z96.649 Presence of unspecified artificial hip joint; Z84.1 Family history of disorders of kidney and ureter

== ENCOUNTER → 2017-01-06 | Day surgery (SDC) | payer BC, OTHER ==
[2016-12-22 11:38] VITALS: Ht 165.1 cm; Wt 66.0 kg
[~2017-01-06] VITALS: Ht 165.1 cm; Wt 66.0 kg
== END | disposition home or self-care (01) ==
LOC: EDSTATUS 07:00 → C.PAT 11:59
PROVIDERS: ATTEND Urology
DX: N20.0 Calculus of kidney (principal); Z53.8 Procedure and treatment not carried out for other reasons; I25.10 Atherosclerotic heart disease of native coronary artery without angina pectoris; K59.09 Other constipation; N81.11 Cystocele, midline; E78.5 Hyperlipidemia, unspecified; R73.9 Hyperglycemia, unspecified; R60.9 Edema, unspecified; M19.90 Unspecified osteoarthritis, unspecified site; Q39.1 Atresia of esophagus with tracheo-esophageal fistula; Q39.3 Congenital stenosis and stricture of esophagus; Z79.82 Long term (current) use of aspirin; Z79.899 Other long term (current) drug therapy; Z95.5 Presence of coronary angioplasty implant and graft; D64.9 Anemia, unspecified

== ENCOUNTER → 2017-03-07 | Outpatient (CLI) | payer BC ==
--- NOTE | 2017-03-07 14:04 | DIAGNOSTIC IMAGING REPORT ---
[facility] CLINICAL HISTORY: Nephrolithiasis. FINDINGS: 2 AP supine abdominal radiographs are compared to study dated 12/27/2016 and correlated with abdominal CT dated 12/29/2016. There is a nonobstructed abdominal bowel gas pattern noting moderate to severe constipation. There is no radiographic evidence of nephrolithiasis. No calcifications are identified along the course of the ureters. The skeletal structures are osteopenic. Moderate lumbosacral spondylosis is observed. Bilateral hip arthroplasties are in place. IMPRESSION: 1. There is no radiographic evidence of nephrolithiasis on today's examination. 2. Moderate to severe constipation. Electronically signed by: Romeo Gregory M.D. 03/07/2017 2:03 PM Dictated Date/Time: 03/07/2017 2:02 PM
== END | disposition home or self-care (01) ==
LOC: C.RAD 13:28
PROVIDERS: ATTEND Urology
DX: N81.11 Cystocele, midline (principal); K59.00 Constipation, unspecified